=== PATIENT | female | born 1955 | race Caucasian/White ===

== ENCOUNTER 2017-06-24 10:03 | Emergency (ER) | payer OTHER ==
[~2017-06-24] VITALS: Ht 160 cm; Wt 102.1 kg
[~2017-06-24 10:03] MED LIST: AMLO5TAB2 PO; BUTA-247 PO; ESCI20TA PO; GABA-534 PO; GLIP10TA11 PO; INSU100V7 SQ; LOSA50TA21 PO; OMEP20TA68 PO; SIMV20TA6 PO; ZOLP10TA2 PO
--- NOTE | 2017-06-24 11:50 | NUR ---
PT CAME IN WITH DAUGHTER FOR DIARRHEA X 2 WEEKS. NAD NOTED. VSS. AWAITING FOR MD LU. SAFETY AND COMFORT MEASURES PROVIDED. WILL MONITOR.
--- NOTE | 2017-06-24 12:15 | NUR ---
IV ACCESS STARTED. BLOOD DRAWN FOR LABS. MEDICATED ORDERED.
[2017-06-24] MEDS ORDERED: DICYCLOMINE HCL INJ 20 MG/2 ML AMPUL IM ONE ×2 (12:30→12:36)
[2017-06-24] MEDS ORDERED: DIPHENOXYLATE HCL/ATROP SULF 1 UDTAB TABLET PO ONE (12:30)
[2017-06-24] MEDS ORDERED: IV NS 0.9% 1,000 ML BAG IV ONE (12:30)
[2017-06-24] MEDS ORDERED: ONDANSETRON HCL/PF 4 MG/2 ML VIAL IVP ONE (12:30)
[2017-06-24] MEDS ORDERED: ONDANSETRON HCL/PF 4 MG/2 ML VIAL ONE (12:36)
[2017-06-24] MEDS ORDERED: DIPHENOXYLATE HCL/ATROP SULF 1 UDTAB TABLET ONE (12:36)
[2017-06-24 13:06] LABS: BASOPHILS % (AUTO) 0.5 % (0.0-2.0); EOSINOPHILS # (AUTO) 0.1 /CMM (0.0-0.7); EOSINOPHILS % (AUTO) 1.4 % (0.0-6.0); HEMATOCRIT 46 % (33-45); HEMOGLOBIN 14.9 g/dL (11.5-14.8); LYMPHOCYTES # (AUTO) 2.7 /CMM (0.8-4.8); LYMPHOCYTES % (AUTO) 30.4 % (20.0-44.0); MEAN CORPUSCULAR HEMOGLOBIN 29 PG (26.0-33.0); MEAN CORPUSCULAR HGB CONC 32 g/dl (31.0-36.0); MEAN CORPUSCULAR VOLUME 89 fL (82-100); MONOCYTES # (AUTO) 0.7 /CMM (0.1-1.30); MONOCYTES % (AUTO) 7.8 % (2.0-12.0); NEUTROPHILS # (AUTO) 5.5 /CMM (1.8-8.9); NEUTROPHILS % (AUTO) 59.9 % (43.0-81.0); PLATELET COUNT (AUTO) 308 /CMM (150-450); RDW COEFFICIENT OF VARIATION 14.2 (11.5-15.0); RED BLOOD CELL COUNT(AUTO) 5.17 MIL/uL (4.0-5.2)
[2017-06-24 13:09] LABS: APPEARANCE,URINE Clear (CLEAR); BILIRUBIN,URINE Negative (NEGATIVE); BLOOD, URINE Trace-intact Ery/uL (NEGATIVE); COLOR,URINE Yellow (YELLOW); KETONES,URINE Negative (NEGATIVE); LEUKOCYTE ESTERASE ,URINE Trace (NEGATIVE); NITRITE, URINE Negative (NEGATIVE); PROTEIN,URINE Negative (NEGATIVE); UGLUCOSE Negative (NEGATIVE); UROBILINOGEN,URINE 0.2 EU/dL (0.2)
[2017-06-24 13:10] LABS: BACTERIA,URINE Few /HPF (None Seen); SQUAMOUS EPITHELIAL CELL,UR Few /HPF (None Seen); WBC,URINE 0-2 /HPF (0-3)
[2017-06-24 13:17] LABS: CALCIUM, SERUM 8.8 mg/dL (8.5-10.1); CREATININE 0.9 mg/dL (0.6-1.3); POTASSIUM 3.9 mmol/L (3.5-5.1)
[2017-06-24 13:22] LABS: ALBUMIN 3.4 g/dL (3.4-5.0); BILIRUBIN,DIRECT 0.1 mg/dL (0.0-0.2); BILIRUBIN,TOTAL 0.4 mg/dL (0.2-1.0); TOTAL PROTEIN, SERUM 6.9 g/dL (6.4-8.2)
--- NOTE | 2017-06-24 14:50 | NUR ---
IV removed. Catheter intact and site benign. Pressure and 4x4 applied to site. No bleeding noted.
[2017-06-24 15:04] VITALS: BP 121/79
--- NOTE | 2017-06-24 15:04 | NUR ---
Patient discharged to home in stable condition. Written and verbal after care instructions given. Patient verbalizes understanding of instruction.
== END 2017-06-24 15:04 | disposition home or self-care (01) ==
LOC: ER 10:04
DX: K52.9 Noninfective gastroenteritis and colitis, unspecified (principal); E11.9 Type 2 diabetes mellitus without complications; R82.99 Other abnormal findings in urine; I10 Essential (primary) hypertension; E78.00 Pure hypercholesterolemia, unspecified; F17.200 Nicotine dependence, unspecified, uncomplicated; Z79.4 Long term (current) use of insulin; Z88.0 Allergy status to penicillin
CPT/HCPCS: 36415; 74176; 80048; 80076; 81001; 82962; 83690; 85025; 87086; 96361; 96372; 96374; 99285; A4606; J0500; J2405; J7030; Z7610; 81000-TC

== ENCOUNTER 2020-05-22 14:33 | Inpatient (IN) | payer MEDICARE, OTHER ==
[~2020-05-22] VITALS: Ht 160 cm; Wt 99.8 kg
[~2020-05-22 14:33] MED LIST changes: -AMLO5TAB2 PO; +AMLO5TAB9 PO; -LOSA50TA21 PO; +LOSA50TA39 PO; +OMEP20TA5 PO; -OMEP20TA68 PO; +SIMV-46 PO; -SIMV20TA6 PO
--- NOTE | 2020-05-22 14:45 | NUR ---
[id number], from home, had seizure episode today, no trauma, BS 154. Patient a/ox4, breathinge hernán and unlabored, no sob noted. Needs attended.
[2020-05-22] MEDS ORDERED: IV NS 0.9% 1,000 ML BAG IV ONE (15:00)
[2020-05-22] MEDS ORDERED: LEVETIRACETAM (500MG) 500 MG in IV NS 0.9% 100 ML IV ONE (15:00)
[2020-05-22 15:43] LABS: BASOPHILS % (AUTO) 0.5 % (0.0-2.0); EOSINOPHILS % (AUTO) 0.1 % (0.0-6.0); HEMATOCRIT 36 % (33-45); HEMOGLOBIN 11.7 g/dL (11.5-14.8); LYMPHOCYTES # (AUTO) 1.4 /CMM (0.8-4.8); LYMPHOCYTES % (AUTO) 16.2 % (20.0-44.0); MEAN CORPUSCULAR HGB CONC 32 g/dl (31.0-36.0); MEAN CORPUSCULAR VOLUME 87 fL (82-100); MONOCYTES # (AUTO) 0.5 /CMM (0.1-1.30); MONOCYTES % (AUTO) 6.5 % (2.0-12.0); NEUTROPHILS # (AUTO) 6.5 /CMM (1.8-8.9); NEUTROPHILS % (AUTO) 76.7 % (43.0-81.0); PLATELET COUNT (AUTO) 552 /CMM (150-450); RED BLOOD CELL COUNT(AUTO) 4.18 MIL/uL (4.0-5.2); WHITE BLOOD COUNT (AUTO) 8.5 K/uL (4.3-11.0)
--- NOTE | 2020-05-22 15:45 | NUR ---
taken to ct.
--- NOTE | 2020-05-22 15:49 | NUR ---
patient came back from ct
[2020-05-22 16:09] LABS: ALANINE AMINOTRANSFERASE 17 U/L (12-78); ALBUMIN 3.1 g/dL (3.4-5.0); ALCOHOL, BLOOD < 3 mg/dL (0-0); ALKALINE PHOSPHATASE 103 U/L (46-116); ASPARTATE AMINOTRANSFERASE 19 U/L (15-37); BILIRUBIN,DIRECT 0.1 mg/dL (0.0-0.2); BILIRUBIN,TOTAL 0.2 mg/dL (0.2-1.0); CARBON DIOXIDE 27 mmol/L (21-32); CHLORIDE 100 mmol/L (98-107); CREATININE 0.8 mg/dL (0.6-1.3); GLUCOSE 138 mg/dL (74-106); POTASSIUM 3.1 mmol/L (3.5-5.1); SODIUM SERUM 136 mmol/L (136-145); TOTAL PROTEIN, SERUM 6.8 g/dL (6.4-8.2); UREA NITROGEN, BLOOD 15 mg/dL (7-18)
[2020-05-22] MEDS ORDERED: PARO40TA4 PO (17:22)
[2020-05-22] MEDS ORDERED: DULA1.5P SQ (17:22)
[2020-05-22] MEDS ORDERED: BUSP10TA35 PO (17:22)
[2020-05-22] MEDS ORDERED: DOCU-270 PO (17:22)
[2020-05-22] MEDS ORDERED: AMYL1CAP58 PO (17:22)
[2020-05-22] MEDS ORDERED: GABA300C PO (17:22)
[2020-05-22] MEDS ORDERED: MELO-107 PO (17:22)
[2020-05-22] MEDS ORDERED: TRAZ-257 PO (17:22)
[2020-05-22] MEDS ORDERED: ERTA1VIA4 IJ (17:22)
[2020-05-22] MEDS ORDERED: MONT10TA22 PO (17:22)
[2020-05-22] MEDS ORDERED: PRAV10TA40 PO (17:22)
[2020-05-22] MEDS ORDERED: LIDOCAINE PATCH TP (17:22)
[2020-05-22] MEDS ORDERED: LEVE500T20 PO (17:22)
[2020-05-22] MEDS ORDERED: HYDR-4384 PO (17:22)
[2020-05-22] MEDS ORDERED: CHOL200010 PO (17:22)
[2020-05-22] MEDS ORDERED: CYCL30DR OP (17:22)
[2020-05-22] MEDS ORDERED: INSU100I4 SQ (17:22)
[2020-05-22] MEDS ORDERED: PANT40TA49 PO (17:22)
[2020-05-22] MEDS ORDERED: METH500T6 PO (17:22)
[2020-05-22] MEDS ORDERED: PRIM50TA27 PO (17:22)
[2020-05-22] MEDS ORDERED: SENN-261 PO (17:22)
[2020-05-22] MEDS ORDERED: POLY17PO29 PO (17:22)
[2020-05-22] MEDS ORDERED: MECL-159 PO (17:22)
[2020-05-22] MEDS ORDERED: LOSA50TA39 PO (17:22)
--- NOTE | 2020-05-22 17:30 | NUR ---
DAUGHTER AT BEDSIDE. PATIENT A/OX4, BREATHING EVEN AND UNLABORED, AMBULATORY WITH STEADY, NEEDS ATTENDED. KEPT COMFORTABLE.
--- NOTE | 2020-05-22 17:56 | NUR ---
LAB CALLED COVID-19 (-) NEG.
--- NOTE | 2020-05-22 18:03 | NUR ---
GOT BED 309-2
--- NOTE | 2020-05-22 18:10 | NUR ---
Attempted to give report to Sulaiman EMMANUEL, nurse is not available at this time.
--- NOTE | 2020-05-22 18:24 | NUR ---
Patient transferred to room 309 via acls protocol. Was going to give bedside report to Sulaiman EMMANUEL but he's not present, informed charge nurse. Instructed to call in ER.
--- NOTE | 2020-05-22 18:25 | NUR ---
Patient a/ox4, ambulatory with steady gait, no dsitress noted. Needs attended. Kept comfortable.
--- NOTE | 2020-05-22 18:30 | NUR ---
RN NOTES PATIENT IN BED RESTING COMFORTABLY IN MODERATE HIGH BACK REST. A/O X2-3. ABLE TO MAKE NEEDS KNOWN. ROOM AIR, TOLERATING WELL. NO SIGNS OF DISTRESS, NO COMPLAIN OF PAIN OR DISCOMFORT AT THIS TIME. NOTED WITH PICC LINE ON ERENDIRA. SAFETY MEASURES IN PLACE, BED PLACED IN LOWEST LOCKED POSITION WITH SIDE RAILS UP X3. CALL LIGHT WITHIN REACH. SEIZURE PRECAUTION INITIATED. WILL ENDORSE TO NETWORK DEVELOPER NURSE FOR ADMISSION.
[2020-05-22] MEDS ORDERED: MAG HYDROX/AL HYDROX/SIMETH 30 ML UDC PO PRN (19:00)
[2020-05-22] MEDS ORDERED: ONDANSETRON HCL/PF 4 MG/2 ML VIAL IVP PRN (19:00)
[2020-05-22] MEDS ORDERED: ACETAMINOPHEN 325 MG TABLET PO PRN (19:00)
[2020-05-22] MEDS ORDERED: POTASSIUM CHLORIDE 20 MEQ TAB.PRT.SR PO ONE (19:00)
[2020-05-22] MEDS ORDERED: Z GUARD REMEDY 2 OZ OINT TP PRN (19:00)
[2020-05-22] MEDS ORDERED: ZOLPIDEM TARTRATE 5 MG TABLET PO PRN (19:00)
[2020-05-22] MEDS ORDERED: MAGNESIUM HYDROXIDE 30 ML UDC PO PRN (19:00)
--- NOTE | 2020-05-22 19:30 | NUR ---
inner tube tuber machine operator opening notes Received Pt from morning nurse. Pt is resting in bed comfortably. Pt is alert and orientedX3. Pt speaks Puerto Rican and able to make needs known. Respiration is normal in room air. No SOB. No S/S of distress noted. Tele monitor showed SR. Noted Pt has BRAYDEN Piccline. Pt stated Picc line from [facility]. Admissions orders received from MD. Reorient Pt to the room and the use of call light. Pt verbalize understanding. Skin assessment is done and performed, skin pictures are taken. Safety precautions is maintained. Seizure precautions is maintained. Bed at low position, brakes locked, side rails upX3 and padded, call light is within reach. Will continue to monitor.
[2020-05-22 20:00] VITALS: BP_SYST 144; BP_SYST 145; BP_DIAS 63; BP_DIAS 81
--- NOTE | 2020-05-22 20:00 | NUR ---
multi share program coordinator notes Pt's daughter Kelly called. Spoke with Pt's daughter regarding Pt's condition. Pt's daughter verbalize understanding. Will continue to monitor.
--- NOTE | 2020-05-22 20:15 | NUR ---
soil field technician notes Pt is requesting a sandwich. Pt stated "I haven't eaten, I'm hungry." Gave Pt a tuna sandwich. Will continue to monitor.
--- NOTE | 2020-05-22 22:00 | NUR ---
packing tractor machine operator notes Pt and Pt's daughter Kelly asked not to give Pt mali, rosanna and jay jay. Charge nurse is aware and informed. Will continue to monitor.
--- NOTE | 2020-05-22 22:00 | NUR ---
vfx artist notes Pt's PICC line (1 port) is clogged and can't be flushed. Inserted new IV sites at R hand# 22 with good blood returned. New IV sites is clean, dry and flush without resistance. Charge nurse is aware and informed. Will continue to monitor.
--- NOTE | 2020-05-22 22:00 | NUR ---
donor floor technician notes Informed and notified Dr. Mark regarding pt's trazodone 100mg. Pt stated Im taking trazodone for sleeping. Received order from . Order carried out. Charge nurse is aware and notified.
--- NOTE | 2020-05-22 22:30 | NUR ---
employee wellness/fitness coordinator notes Called and spoke with Pharmacy Jahaira to verify Pt's meds trazodone 100 mg. Will continue to monitor.
[2020-05-22] MEDS: TRAZODONE 50 MG TABLET PO SCH (22:40)
--- NOTE | 2020-05-22 22:43 | NUR ---
cattle tester notes Pt's requesting trazodone to help to sleep. Administered trazodone 50 mg/2 tabs/po/hs as ordered. Safety precautions is maintained. Will continue to monitor.
[2020-05-22] MEDS ORDERED: BLOOD SUGAR DIAGNOSTIC 1 EACH STRIP IN SCH (23:00)
[2020-05-22] MEDS: LEVETIRACETAM (500MG) 500 MG in IV NS 0.9% 100 ML IV SCH (23:12)
[2020-05-23] VITALS: BP 137/61
[2020-05-23] MEDS ORDERED: DEXTROSE 50%-WATER 50 ML DISP.SYRIN IV PRN
--- NOTE | 2020-05-23 00:05 | NUR ---
foil wrapper notes Called and spoke with [facility] regarding novolog insulin. Pharmacy stated that our hospital does not have novolog, our hospital have humalog and pharmacy also stated novolog is almost the same with humalog. Charge nurse is informed and notified.
[2020-05-23] MEDS: *INSULIN REGULAR(HUMULIN R)HUM 100 UNIT/ML VIAL SQ PRN (00:14)
[2020-05-23 00:25] VITALS: BP 137/61
[2020-05-23 04:00] VITALS: BP 141/62
[2020-05-23 04:26] VITALS: BP 141/62
--- NOTE | 2020-05-23 06:30 | NUR ---
sales enablement analyst notes Pt's blood sugar is 125 no coverage is given. Will continue to monitor.
--- NOTE | 2020-05-23 06:50 | NUR ---
professor of pathology notes Pt accidentally removed IV sites at R hand#22. Pt refused to have new IV sites insertion. Made aware risks and benefits. Will continue to monitor.
[2020-05-23] MEDS: BLOOD SUGAR DIAGNOSTIC 1 EACH STRIP VI SCH ×4 (06:54→22:02)
[2020-05-23 06:57] LABS: BASOPHILS % (AUTO) 0.3 % (0.0-2.0); HEMATOCRIT 40 % (33-45); HEMOGLOBIN 12.8 g/dL (11.5-14.8); LYMPHOCYTES % (AUTO) 19.9 % (20.0-44.0); MEAN CORPUSCULAR HGB CONC 32 g/dl (31.0-36.0); MEAN CORPUSCULAR VOLUME 86 fL (82-100); MONOCYTES # (AUTO) 0.8 /CMM (0.1-1.30); MONOCYTES % (AUTO) 7.8 % (2.0-12.0); NEUTROPHILS # (AUTO) 7.1 /CMM (1.8-8.9); PLATELET COUNT (AUTO) 616 /CMM (150-450); RED BLOOD CELL COUNT(AUTO) 4.61 MIL/uL (4.0-5.2); WHITE BLOOD COUNT (AUTO) 9.8 K/uL (4.3-11.0)
--- NOTE | 2020-05-23 07:00 | NUR ---
labview programmer closing notes Pt is resting in bed comfortably. Pt is alert and orientedX3, confused and easily forgetful. Respiration is normal in room air. No SOB. No S/S of distress noted. VS is stable. Afebrile. Routine meds were given as ordered. Tele monitor showed SR Hr at 79. Kept Pt clean, dry and comfortable. All needs met and attended. Safety precautions is maintained. Seizure precautions is maintained. Bed at low position, brakes locked, side railsupX3 and padded, call light is within reach. Will endorse to am nurse for JAYLON.
[2020-05-23 07:03] LABS: CALCIUM, SERUM 8.7 mg/dL (8.5-10.1); CREATININE 0.7 mg/dL (0.6-1.3); MAGNESIUM 1.9 mg/dL (1.8-2.4); PHOSPHORUS 2.5 mg/dL (2.5-4.9); POTASSIUM 3.2 mmol/L (3.5-5.1)
[2020-05-23 07:12] LABS: THYROID STIMULATING HORMONE 1.036 uIU/mL (0.358-3.74)
--- NOTE | 2020-05-23 07:30 | NUR ---
MS/RN OPENING NOTES RECEIVED PATIENT ON BED AWAKE, CONFUSED AND FORGETFUL. PATIENT IN NO APPARENT RESPIRATORY DISTRESS NOTED. DENIES PAIN AT THIS TIME. WILL CONTINUE TO MONITOR.
[2020-05-23 08:00] VITALS: BP 164/82
--- NOTE | 2020-05-23 08:51 | NUR ---
WOUND CARE CONSULT: PT REFUSED TO TURN FOR SKIN ASSESSMENT. REVIEWED CHART, NURSING DOCUMENTATION AND PHOTOS WHICH INDICATE CLOSED INCISION TO BACK WITH SUTURES. PER RN, BACK DRESSING WAS JUST CHANGED AND SHE STATED THERE WAS NO ERYTHEMA OR DRAINAGE NOTED. DRY DRESSING IN PLACE. ADMISSION PHOTOS INDICATE RASH TO BREASTFOLDS, PRESENT ON ADMISSION. RECOMMENDATIONS MADE FOR SKIN PROTECTION. DISCUSSED WITH NURSING STAFF. CURRENT CYNTHIA SCORE IS 18. PT WAS NOTED TO HAVE HEAD AND EYE MOVEMENTS FOR A FEW MINUTES, THEN BEGAN SPEAKING SPANISH AFTER PREVIOUSLY SPEAKING GUAMANIAN. RN AND LATHE PULLER AWARE. WILL SEE PRNCarl MIX IN AGREEMENT WITH PLAN OF CARE.
[2020-05-23] MEDS: LEVETIRACETAM (500MG) 500 MG in IV NS 0.9% 100 ML IV SCH (09:02)
[2020-05-23] MEDS: CLOTRIMAZOLE 1% 15 GM TUBE TP SCH ×2 (09:28→17:02)
--- NOTE | 2020-05-23 09:47 | NUR ---
MS/RN NOTES PATIENT COMPLAINED OF FEELING ANXIOUS. ATIVAN 05MG IV WAS GIVEN. WILL CONTINUE TO MONITOR.
[2020-05-23] MEDS: LORAZEPAM INJ 2 MG/ML VIAL IV PRN (09:49)
[2020-05-23] MEDS: POTASSIUM CHLORIDE 20 MEQ TAB.PRT.SR PO SCH ×2 (09:49→10:31)
--- NOTE | 2020-05-23 11:00 | NUR ---
MS/RN NOTES MD IS AWARE FOR HOME MEDICATION RECONCILIATION AND CHEMICAL PROPHYLAXIS.
[2020-05-23] MEDS: INSULIN REGULAR, HUMAN 100 UNIT/ML 3 ML VIAL SQ PRN ×3 (12:04→21:59)
--- NOTE | 2020-05-23 16:19 | NUR ---
MS/RN NOTES KULWINDER THE DAUGHTER WANT TO TALK TO THE MD BEFORE ANY TEST OR PROCEDURE FOR PATIENT MDIS AWARE.
[2020-05-23] MEDS ORDERED: IOHEXOL-300 100 ML VIAL IV ONE (17:29)
[2020-05-23] MEDS ORDERED: CT SWABBABLE VALVE TRANS SET 1 EA INFUS.SET MC ONE (17:29)
[2020-05-23] MEDS ORDERED: IV NS 0.9% 250 ML IV ONE (17:29)
--- NOTE | 2020-05-23 18:43 | NUR ---
MS/RN NOTES MITCHEL WHITE ORDER 1000MG IV KEPPRA X1 NOW, 1000 MG 1V KEPPRA EVERY 12 HOURS AND MRI WITH AND WITHOUT CONTRAST, NOTED AND CARRIED OUT. Addendum: 05/23/20 at 1859 by JOS MOORE RN ERROR
--- NOTE | 2020-05-23 18:43 | NUR ---
MS/RN NOTES MITCHEL WHITE ORDER 1000MG IV KEPPRA X1 NOW, 1000 MG 1V KEPPRA EVERY 12 HOURS AND MRI BRAIN WITH AND WITHOUT CONTRAST, NOTED AND CARRIED OUT.
--- NOTE | 2020-05-23 18:56 | NUR ---
MS/RN CLOSING NOTES PATIENT IS ON BED, CONFUSED AND FORGETFUL. PATIENT HAVE 1:1 SITTER. PATIENT NO SIGN AND SYMPTOM OF PAIN NOTED. PATIENT IN NO RESPIRATORY DISTRESS NOTED. IV ACCESS ERENDIRA # 18 G PATENT AND INTACT. SEEN AND EXAMINED BY MD WITH ORDERS MADE AND CARRIED OUT. ALL DUE MEDICATION WAS ORDER. SAFETY PRECAUTION WAS IN PLACED. BED IN LOWEST POSITION AND LOCKED. SIDE RAILS UP X 2. CALL LIGHT WITHIN REACH. WILL ENDORSED TO ELECTRIC TRIPPER MACHINE OPERATOR FOR JAYLON.
[2020-05-23] MEDS ORDERED: LEVETIRACETAM (500MG) 1,000 MG in IV NS 0.9% 100 ML IV ONE (19:30)
--- NOTE | 2020-05-23 20:05 | NUR ---
MS RN NOTE: PATIENT RESTING IN BED, NO ACUTE DISTRESS NOTED. BREATHING EVEN AND UNLABORED, NO SOB NOTED. MIDLINE TO ERENDIRA IN PLACE, HL TO RIGHT WRIST IN PLACE. PATIENT WITH MULTIPLE ORDERS FOR KEPPRA IV. CLARIFIED ORDERS WITH DAYSHIFT AND INFORMED PHARMACY, THAT PATIENT TO RECEIVE 1 DOSE OF KEPPRA IV 500MG ONCE NOW, AND TO CONTINUE PREVIOUS ORDER OF KEPPRA 1000MG IV EVERY 12 HOURS. ORDERED NOTED AND CARRIED OUT. SITTER AT BEDSIDE, SEIZURE PRECAUTIONS OBSERVED. BED LOCKED AND IN LOWEST POSITION, CALL LIGHT IN REACH WILL CONTINUE TO MONITOR.
[2020-05-23 20:07] VITALS: BP 168/77
[2020-05-23] MEDS ORDERED: LEVETIRACETAM (500MG) 1,000 MG in IV NS 0.9% 100 ML IV SCH ×2 (21:00→22:00)
--- NOTE | 2020-05-23 21:15 | NUR ---
SPOKE WITH DAUGHTER KULWINDER REGAURDING MRI TOMORROW AND VERIFIED PATIENT MEDICAL HISTORY FOR QUESTIONAIRE, PATIENT WAS A POOR HISTORIAN D/T MENTAL STATUS. REVIEWED POC WITH DAUGHTER KULWINDER. PEGGYMILLIE THAT THERE WAS A RECENT MRI PERFORMED AT [facility] EAR[facility]ER THIS MONTH AND MAY BE USEFUL .CONSENT FOR RELEASE OF RECORDS SIGNED VIA TELPHONE CONSENT WITH ORALIA EMMANUEL.
[2020-05-23] MEDS: TRAZODONE 50 MG TABLET PO SCH (21:31)
[2020-05-23] MEDS: LEVETIRACETAM (500MG) 1,000 MG in IV NS 0.9% 100 ML IV SCH (21:33)
[2020-05-23] MEDS: CEFEPIME 2 GM in IV D5W 100 ML IV SCH (22:02)
[2020-05-23] MEDS: VANCOMYCIN 1.25 GM in IV D5W 250 ML IV SCH (23:08)
--- NOTE | 2020-05-24 00:09 | NUR ---
record request sent to [facility] to get recent mri report and other pertinent records. authorization consented to earlier by daughter jac.
[2020-05-24] MEDS: INSULIN REGULAR, HUMAN 100 UNIT/ML 3 ML VIAL SQ PRN ×2 (06:15→14:27)
--- NOTE | 2020-05-24 06:16 | NUR ---
INSULIN HELD PT WILL BE KEPT NPO FOR MRI OF BRAIN SCHEDULED FOR THIS AM
[2020-05-24] MEDS: BLOOD SUGAR DIAGNOSTIC 1 EACH STRIP VI SCH ×4 (06:29→22:40)
[2020-05-24 06:52] LABS: BASOPHILS # (AUTO) 0.1 /CMM (0.0-0.2); BASOPHILS % (AUTO) 0.8 % (0.0-2.0); EOSINOPHILS % (AUTO) 0.1 % (0.0-6.0); HEMATOCRIT 37 % (33-45); HEMOGLOBIN 11.9 g/dL (11.5-14.8); LYMPHOCYTES % (AUTO) 16.6 % (20.0-44.0); MEAN CORPUSCULAR HGB CONC 32 g/dl (31.0-36.0); MEAN CORPUSCULAR VOLUME 87 fL (82-100); MONOCYTES % (AUTO) 8.8 % (2.0-12.0); NEUTROPHILS # (AUTO) 8.7 /CMM (1.8-8.9); NEUTROPHILS % (AUTO) 73.7 % (43.0-81.0); PLATELET COUNT (AUTO) 424 /CMM (150-450); RED BLOOD CELL COUNT(AUTO) 4.24 MIL/uL (4.0-5.2); WHITE BLOOD COUNT (AUTO) 11.8 K/uL (4.3-11.0)
--- NOTE | 2020-05-24 06:55 | NUR ---
MS RN CLOSING NOTE: PATIENT RESTING IN BED, NO ACUTE DISTRESS NOTED. BREATHING EVEN AND UNLABORED, NO SOB NOTED. MIDLINE TO ERENDIRA IN PLACE SITTER AT BEDSIDE, SEIZURE PRECAUTIONS OBSERVED. BED LOCKED AND IN LOWEST POSITION, CALL LIGHT IN REACH WILL ENDORSE TO AM SHIFT
[2020-05-24 06:59] LABS: CALCIUM, SERUM 8.2 mg/dL (8.5-10.1); CREATININE 0.7 mg/dL (0.6-1.3); PHOSPHORUS 2.4 mg/dL (2.5-4.9); POTASSIUM 3.1 mmol/L (3.5-5.1)
--- NOTE | 2020-05-24 07:30 | NUR ---
RECEIVED PT. THIS AM ALERT AND ORIENTED X2-3.SEEMS SLUGGISH AT TIMES VS STABLE. DTR CALLING OFTEN.
[2020-05-24 08:00] VITALS: BP 153/64
[2020-05-24] MEDS: LEVETIRACETAM (500MG) 1,000 MG in IV NS 0.9% 100 ML IV SCH (10:11)
[2020-05-24] MEDS: CLOTRIMAZOLE 1% 15 GM TUBE TP SCH ×2 (10:19→18:18)
[2020-05-24] MEDS: POTASSIUM CHLORIDE 20 MEQ TAB.PRT.SR PO SCH ×2 (10:33→12:00)
[2020-05-24] MEDS: *INSULIN REGULAR(HUMULIN R)HUM 100 UNIT/ML VIAL SQ PRN ×2 (10:44→18:35)
[2020-05-24] MEDS: CEFEPIME 2 GM in IV D5W 100 ML IV SCH ×2 (11:50→20:20)
--- NOTE | 2020-05-24 12:23 | NUR ---
PER RADIOLOGIST MD BRAVO, UNABLE TO PERFORM LUMBAR PUNCTURE DUE TO RISK OF INFECTION ON PATIENTS SKIN. CANCEL PER RADIOLOGIST.
[2020-05-24] MEDS ORDERED: GADOTERATE MEGLUMINE 10 MMOL/20 ML VIAL IV ONE (13:04)
[2020-05-24] MEDS: LORAZEPAM INJ 2 MG/ML VIAL IV PRN ×2 (13:04→20:44)
--- NOTE | 2020-05-24 13:20 | NUR ---
STUMBLING FOR CORRECT WORD TO USE.COGNOTIVELY A LITTLE SLOW.ATIVAN GIVEN.
[2020-05-24] MEDS ORDERED: LEVETIRACETAM (500MG) 1,000 MG in IV NS 0.9% 100 ML IV ONE (13:30)
[2020-05-24] MEDS ORDERED: K PHOS NEUTRAL 250 MG TABLET PO ONE ×2 (14:00→18:30)
[2020-05-24] MEDS: VANCOMYCIN 1.25 GM in IV D5W 250 ML IV SCH ×2 (14:51→22:40)
[2020-05-24 16:00] VITALS: BP 162/76
--- NOTE | 2020-05-24 16:50 | NUR ---
EXTRA DOSE OF KEPPRA GIVEN.
--- NOTE | 2020-05-24 17:00 | NUR ---
MOUNA MIX AND DR. MENDEZ IN TO SEE PT. EQUIPMENT HIRE MANAGER AT BEDSIDE.
--- NOTE | 2020-05-24 18:00 | NUR ---
K-DUR SUPPLEMENT AND NEUTRA PHOS GIVEN.
--- NOTE | 2020-05-24 19:50 | NUR ---
MSRN FULLY AWAKE , PRESENT IVF INFUSING WELL. ON MULTIPLE ANTIBIOTICS. SEIZURE PRECAUTIONS CLOSELY OBSERVED. BEDREST EMPHASIZED. LIMITED MACANESE ABLE O EXPRESS NEEDS AND CONCERNS IN SIMPLE MACANESE. NO SOB, BRP WITH STANDY ASSIST. REFUSED BEDSIDE COMMODE. SIDERAILS PADDED.
[2020-05-24 20:00] VITALS: BP 146/63
--- NOTE | 2020-05-24 20:45 | NUR ---
MSRN VERY ANXIOUS STATED VERY NERVOUS. ATIVAN 1MG IVP GIVEN, BEDREST INSTRUCTED. ALL NEEDS ATTENDED.
--- NOTE | 2020-05-24 21:00 | NUR ---
MSRN ASLEEP, EASILY AWAKENED WHRN CALLED. FEELS BETTER THIS TIME STATED BY PATIENT.
[2020-05-24] MEDS: LEVETIRACETAM (500MG) 1,500 MG in IV NS 0.9% 100 ML IV SCH (21:19)
[2020-05-24] MEDS: TRAZODONE 50 MG TABLET PO SCH (22:42)
--- NOTE | 2020-05-24 22:57 | NUR ---
MSRN BS WAS 170. NO COVERAGE FOR NOW. PATIENT REFUSED TO EAT SNACKS. STATED WAS HIGH FROM TAKING [place] EARLIER PATIENT VERBALIZES. OTHER DUE MEDS ADMINISTERED. WENT BACK TO SLEEP.
--- NOTE | 2020-05-25 01:59 | NUR ---
MSRN ASLEEP APPEARS COMFORTABLE. CLOSELY WATCHED.
--- NOTE | 2020-05-25 06:20 | NUR ---
MSRN VOIDED TOTAL OF 4 X BRP. BS WAS 184 COVERED WITH 3 UNITS SQ OF REGULAR INSULIN PER SLIDING SCALE.
[2020-05-25] MEDS: BLOOD SUGAR DIAGNOSTIC 1 EACH STRIP VI SCH ×4 (06:28→21:16)
[2020-05-25] MEDS: INSULIN REGULAR, HUMAN 100 UNIT/ML 3 ML VIAL SQ PRN ×3 (06:30→17:14)
[2020-05-25 06:45] LABS: CALCIUM, SERUM 8.1 mg/dL (8.5-10.1); CREATININE 0.7 mg/dL (0.6-1.3); PHOSPHORUS 2.6 mg/dL (2.5-4.9); POTASSIUM 2.9 mmol/L (3.5-5.1)
--- NOTE | 2020-05-25 07:30 | NUR ---
MS/RN Opening note Patient received from wood buffer. A/O X4, vital signs stable, denies any pain or discomfort at this time. IV fluids infusing via midline, no signs of infiltration seen. Dressings dry and intact, changed at change of shift by outgoing nurse. Call light within reach, sitter in room for safety. Will continue to monitor and ensure safety.
[2020-05-25 08:00] VITALS: BP 153/89
[2020-05-25] MEDS: CEFEPIME 2 GM in IV D5W 100 ML IV SCH ×2 (08:17→21:15)
[2020-05-25] MEDS: CLOTRIMAZOLE 1% 15 GM TUBE TP SCH ×2 (09:00→17:10)
[2020-05-25] MEDS: LEVETIRACETAM (500MG) 1,500 MG in IV NS 0.9% 100 ML IV SCH (09:02)
--- NOTE | 2020-05-25 09:10 | NUR ---
MS/workday financials consultant contact info Daughter's contact information: Kelly
--- NOTE | 2020-05-25 09:18 | NUR ---
MS/RN Medications Morning medications administered as ordered.
--- NOTE | 2020-05-25 09:48 | NUR ---
[facility], will discharge today.
[2020-05-25] MEDS: VANCOMYCIN 1.25 GM in IV D5W 250 ML IV SCH ×2 (10:40→22:14)
[2020-05-25] MEDS: POTASSIUM CHLORIDE 20 MEQ TAB.PRT.SR PO SCH ×3 (10:40→12:13)
--- NOTE | 2020-05-25 11:30 | NUR ---
MS/RN Blood glucose Blood glucose at 1130 252, insulin coverage as per sliding scale.
--- NOTE | 2020-05-25 11:45 | NUR ---
MS/RN Refusing ARU Patient refusing to be discharged to acute rehab, stating that she has been in the hospital to long over the past month and would recover better at home. Informed of concerns of her family and having anyone to stay with her during her recovery period. Patient adamantly refusing any kind of placement. Will inform case worker.
--- NOTE | 2020-05-25 13:40 | NUR ---
MS/RN S/B Dr Sol Seen by Dr Sol - patient for discharge today.
[2020-05-25 16:00] VITALS: BP 145/79
--- NOTE | 2020-05-25 16:00 | NUR ---
MS/RN Refusing ARU Patient refusing to be discharged to acute rehab, continues to insist on going home with home health for IVAB. Kelly (patient's daughter) aware and continuing to try to persuade patient to go home. biodiesel plant manager at bedside with charge nurse providing translation.
--- NOTE | 2020-05-25 16:12 | NUR ---
MS/RN S/B Dr Lacey Seen by Dr Lacey - discharge held due to hypokalemia. Repeat EEG ordered.
[2020-05-25 17:04] LABS: CHLORIDE,URINE RANDOM 117 mmol/L (55-125); POTASSIUM RNDM,URINE 27 mmol/L (25-125); URINE SODIUM, RANDOM 77 mmol/l (40-220)
[2020-05-25 17:26] LABS: OSMOLALITY,URINE 444 mOS/kg (340-1090)
--- NOTE | 2020-05-25 18:11 | NUR ---
received call from Dr. Zhen Singh neurologist from , updated with pt's condition. He stated that, he will contact the pt with f/u apt after discharge.
--- NOTE | 2020-05-25 18:34 | NUR ---
MS/RN End note EEG currently in progress at bedside, will endorse to night coordinator.
--- NOTE | 2020-05-25 18:46 | NUR ---
MS/RN New orders Call received from Dr Lacey - stat labs ordered, keppra dose increased from 1500 to 2000mg IVAB every 12 hours. New dose to be given now, pharmacy called, spoke with Vickie, will send new medication.
[2020-05-25] MEDS: LEVETIRACETAM (500MG) 2,000 MG in IV NS 0.9% 100 ML IV SCH (19:03)
--- NOTE | 2020-05-25 19:40 | NUR ---
MSRN FULLY AWAKE, NO NEEDS AT THIS TIME. NO COMPLAINTS MADE. EAGER TO GO HOME. ON SEIZURE PRECAUTIONS.
[2020-05-25 19:57] VITALS: BP 165/73
[2020-05-25 20:06] LABS: CALCIUM, SERUM 8.5 mg/dL (8.5-10.1); CREATININE 0.9 mg/dL (0.6-1.3); POTASSIUM 3.2 mmol/L (3.5-5.1)
[2020-05-25 20:22] LABS: BASOPHILS # (AUTO) 0.1 /CMM (0.0-0.2); BASOPHILS % (AUTO) 0.4 % (0.0-2.0); EOSINOPHILS % (AUTO) 0.7 % (0.0-6.0); HEMATOCRIT 41 % (33-45); HEMOGLOBIN 13.5 g/dL (11.5-14.8); LYMPHOCYTES # (AUTO) 2.2 /CMM (0.8-4.8); LYMPHOCYTES % (AUTO) 15.9 % (20.0-44.0); MEAN CORPUSCULAR HGB CONC 33 g/dl (31.0-36.0); MEAN CORPUSCULAR VOLUME 86 fL (82-100); MONOCYTES # (AUTO) 1.4 /CMM (0.1-1.30); MONOCYTES % (AUTO) 10.2 % (2.0-12.0); NEUTROPHILS # (AUTO) 10.1 /CMM (1.8-8.9); NEUTROPHILS % (AUTO) 72.8 % (43.0-81.0); PLATELET COUNT (AUTO) 615 /CMM (150-450); RED BLOOD CELL COUNT(AUTO) 4.82 MIL/uL (4.0-5.2); WHITE BLOOD COUNT (AUTO) 13.9 K/uL (4.3-11.0)
[2020-05-25 20:54] LABS: LYMPHOCYTES % (MANUAL) 11 % (16-48); MONOCYTES % (MANUAL) 5 % (0-11.0); NEUTROPHILS % (MANUAL) 84 (42-76)
[2020-05-25] MEDS: TRAZODONE 50 MG TABLET PO SCH (21:38)
[2020-05-25] MEDS: *INSULIN REGULAR(HUMULIN R)HUM 100 UNIT/ML VIAL SQ PRN (21:41)
--- NOTE | 2020-05-25 22:00 | NUR ---
MSRN BS 212, COVERED WITH 4 UNITS OF REGULAR INSULIN SQ PER SLIDING SCALE. DECLINED SNACKS, OTHE DUE MEDS GIVEN
--- NOTE | 2020-05-26 | NUR ---
PT PLACED ON NPO PER. DR. HURTADO NOTED AND CARRIED OUT ORDERS Addendum: 05/27/20 at 0126 by JOHNNY CARDENAS RN MISTAKEN ENTRY WRONG TIME PLS DISREGARD THIS DOCUMENTATION
--- NOTE | 2020-05-26 03:09 | NUR ---
MSRN SLEEPING APPEARS COMFORTABLE.CLOSELY WATCHED
[2020-05-26 06:47] LABS: CALCIUM, SERUM 8.2 mg/dL (8.5-10.1); CREATININE 0.7 mg/dL (0.6-1.3)
--- NOTE | 2020-05-26 06:55 | NUR ---
MSRN BS 194. REFUSES ANY INSULIN COVERAGE. RECEIVED CALL FROM LAB. K LEVEL WAS 2.8. WILL ENDORSE TO INCOMING RN
[2020-05-26 06:59] LABS: POTASSIUM 2.8 mmol/L (3.5-5.1)
--- NOTE | 2020-05-26 08:00 | NUR ---
MS/RN Opening note Received pt A/O X2-3, with episodes of confusion,denies any pain or discomfort at this time. ERENDIRA midline intact, no signs of infiltration seen. Dressings dry and intact, Pt ambulated with P.T ambulating with FWW, tolerating well with no seizure episode. With sitter at the bedside.Call light within reach, sitter in room for safety. Will continue to monitor and ensure safety.
[2020-05-26] MEDS: INSULIN REGULAR, HUMAN 100 UNIT/ML 3 ML VIAL SQ PRN ×2 (08:21→12:36)
[2020-05-26] MEDS: BLOOD SUGAR DIAGNOSTIC 1 EACH STRIP VI SCH ×4 (08:26→21:32)
[2020-05-26] MEDS: CEFEPIME 2 GM in IV D5W 100 ML IV SCH ×2 (08:36→21:56)
[2020-05-26] MEDS: CLOTRIMAZOLE 1% 15 GM TUBE TP SCH ×2 (08:37→17:10)
--- NOTE | 2020-05-26 10:00 | NUR ---
NOTIFIED DR MUNDO SANCHEZ OF PT'S MED RECON NEEDING TO BE DONE.
--- NOTE | 2020-05-26 10:05 | NUR ---
NOTIFIED DR FLOWER OF PT'S VTE SCORE OF 3 PT NEEDING ANTICOAGULANT ORDER.
[2020-05-26] MEDS: VANCOMYCIN 1.25 GM in IV D5W 250 ML IV SCH ×2 (10:29→22:43)
[2020-05-26] MEDS ORDERED: POTASSIUM CHLORIDE 20 MEQ TAB.PRT.SR PO ONE (10:30)
[2020-05-26] MEDS ORDERED: POTASSIUM CHLORIDE 20 MEQ POWDER PACKET NG ONE (10:30)
[2020-05-26] MEDS: POTASSIUM CHLORIDE 20 MEQ TAB.PRT.SR PO SCH ×3 (10:49→13:22)
[2020-05-26] MEDS: VALSARTAN 80 MG TABLET PO SCH (12:17)
[2020-05-26] MEDS: LEVETIRACETAM (500MG) 2,000 MG in IV NS 0.9% 100 ML IV SCH ×2 (12:18→21:13)
--- NOTE | 2020-05-26 15:00 | NUR ---
DR PHAM CAME AND REMOVED PT'S BACK SUTURES WITH NO BLEEDING NOTED. PT TOLERATED WELL.COVERED WITH DRY DRESSING.
[2020-05-26 16:00] VITALS: BP 131/70
--- NOTE | 2020-05-26 16:15 | NUR ---
Seen by Dr Lacey saying when the pt has episodes of forgetful with confusion and pauses for awhile that is the type of seizure the pt has. Pt has occasional episodes this morning. Still awaiting for pt transfer to [facility]. Pt's daughter,Kelly delong.
[2020-05-26] MEDS: LORAZEPAM INJ 2 MG/ML VIAL IV PRN (18:12)
--- NOTE | 2020-05-26 18:50 | NUR ---
PT IS NOTICED TO BE DROOLING,UNABLE TO SWALLOW THE MEAT SHE WAS EATING FOR DINNER , WITH BLANK STARES WHILE SITTING ON THE EDGE OF BED PROPERLY WITH JUST BLANK STARES ON THE STAFF AND NON VERBAL.NOTIFIED DR CHAIREZ AND OBTAINED ORDERS AND CARRIED OUT. BP 118/89 HR 110. NO SOB OR DISTRESS ON ROOM AIR. NO GRIMACING OR S/S OF DISCOMFORT NOTED.STILL PROPERLY SITTED ON THE EDGE OF BED WITH SUSIE FEET ON THE FLOOR. WITH 1:1 SITTER AT THE BEDSIDE. WILL CONTINUE TO MONITOR.
[2020-05-26] MEDS ORDERED: LACOSAMIDE 200 MG in IV NS 0.9% 100 ML IV STA (18:55)
--- NOTE | 2020-05-26 19:48 | NUR ---
MS RN RECEIVE PT IN BED WATCHING TV A/O 3 JORDANIAN SPEAKING STABLE AND NOT IN DISTRESS 1:1 SITTER SEIZURE PRECAUTION PT ON VIMPAT SAFETY MEASURES AT ALL TIMES. WILL CONT TO MONITOR Addendum: 05/27/20 at 0124 by JOHNNY CARDENAS RN PT A/O 2-3 ABLE TO RESPOND YES/NO STABLE AT THIS TIME
[2020-05-26 20:00] VITALS: BP 127/68
--- NOTE | 2020-05-26 20:00 | NUR ---
TEMP 99.7 COOLING MEASURES PROVIDED TO THE PT
--- NOTE | 2020-05-26 20:15 | NUR ---
DAUGHTER KULWINDER AT BEDSIDE AIRCRAFT CHARTER DISPATCHER ALLOW FAMILY TO VISIT PT FOR 10 MINUTES CHARGE NURSE AWARE. DISCUSS PLAN OF CARE TO THE DAUGHTER EXPLAINED SHE HAD EPISODE OF SEIZURE EARLIER AND SHE WAS UPSET BECAUSE NO ONE TOLD HER. EXPLAINED TO HER THAT NEUROLOGIST AWARE CHANGE OF CONDITION ORDERED STAT LABS. EDUCATED HER ABOUT DISEASE PROCESS & TREATMENTS DAUGTHER VERBALIZED UNDERSTANDING AND APPRECIATIVE TO NURSE
[2020-05-26 20:23] LABS: CALCIUM, SERUM 8.5 mg/dL (8.5-10.1); CREATININE 0.9 mg/dL (0.6-1.3); MAGNESIUM 1.7 mg/dL (1.8-2.4); PHOSPHORUS 2.5 mg/dL (2.5-4.9); POTASSIUM 3.3 mmol/L (3.5-5.1)
--- NOTE | 2020-05-26 20:45 | NUR ---
NOTED PT TWITCHING OF THE MOUTH AND CONTINUOUS HAND TREMORS RELAYED TO DR. HURTADO PER DR. MENDEZ RELAYED POTASSIUM OF 3.3 AND MAGNESIUM OF 1.7 PER M.D ORDERS GIVE POTASSIUM 60 MEQ IV PB AND MG 1 GRAM IV PB, TRANSFER TO TELEMETRY NO IV. FLUID ORDERS. PER DR. OLIVA ITS RELATED TO HER SEIZURES READ BACK AND VERIFIED ORDERS NOTED AND CARRIED OUT Addendum: 05/27/20 at 0113 by JOHNNY CARDENAS RN PT TWITCHING R MOUTH
--- NOTE | 2020-05-26 20:45 | NUR ---
PT PLACED ON NPO PER. DR. HURTADO NOTED AND CARRIED OUT ORDERS
[2020-05-26] MEDS ORDERED: Magnesium 1GM/D5W 100ML PREMIX PIGGYBACK IV ONE (21:00)
[2020-05-26] MEDS ORDERED: LACOSAMIDE 50 MG TABLET PO SCH (21:00)
[2020-05-26 21:30] VITALS: BP 94/61
--- NOTE | 2020-05-26 21:30 | NUR ---
NOTED TEMPERATURE AT 101.2 COOLING MEASURES PROVIDED WILL CONTNUE TO MONITOR PT
[2020-05-26] MEDS: TRAZODONE 50 MG TABLET PO SCH (21:32)
[2020-05-26 22:00] VITALS: BP 155/64
--- NOTE | 2020-05-26 22:00 | NUR ---
TEMPERATURE 99.5 AT THIS TIME. WILL CONT TO MONITOR
--- NOTE | 2020-05-26 22:07 | NUR ---
PAGED AND SPOKE TO BECKI GARNETT REGARDING PT'S CHANGE OF CONDITION R HAND TREMORS STILL ONGOING AND R MOUTH TWITCHING PER BECKI NO ICU TRANSFER GIVE ATIVAN 2 MG IVP ONE TIME AND TYLENOL 650 MG SUPP Q6HR READ BACK AND VERIFIED ORDERS NOTED AND CARRIED OUT.
--- NOTE | 2020-05-26 22:15 | NUR ---
CALLED DISCUSS PT'S CONDITION AT THIS TIME.
--- NOTE | 2020-05-26 22:15 | NUR ---
PER DR. JIMENEZ TRANSFER PT TO ICU CHARGE AWARE AND PREPARING FOR THE ROOM
--- NOTE | 2020-05-26 22:20 | NUR ---
PER DR.OKHAVAT DILLARD DILANTIN 1000 MG IVPB ONE TIME AND DILANTIN 200 MG IVPB Q 12HR READ BACK AND VERIFIED ORDERS NOTED AND CARRIED OUT Addendum: 05/26/20 at 2253 by JOHNNY CARDENAS RN START DILANTIN 200 MG IVPB Q2HR IVPB TOMORROW 05/27/2020 Addendum: 05/27/20 at 0008 by JOHNNY CARDENAS RN TO START DILANTIN 200 MG IVPB EVERY 12 HR NOT Q2HR TOMORROW 05/27/2020
--- NOTE | 2020-05-26 22:26 | NUR ---
ATIVAN GIVEN 2 MG IVPB PER INSTRUCTED BY Randy FOR SEIZURE WILL CONT TO MONITOR PATIENT Addendum: 05/27/20 at 0144 by JOHNNY CARDENAS RN IVP NOT IVPB
--- NOTE | 2020-05-26 22:26 | NUR ---
TYLENOL GIVEN SUPP WILL CONTINUE TO MONITOR PT LATEST TEMP AT 99.5
[2020-05-26] MEDS: POTASSIUM CL. PREMIX PERIPHER. 50 ML IV SCH ×2 (22:28→23:30)
[2020-05-26] MEDS ORDERED: phenytoin SODIUM IV 1,000 MG in IV NS 0.9% 100 ML IV ONE (22:30)
[2020-05-26] MEDS ORDERED: ACETAMINOPHEN 650 MG/SUPP.RECT RC PRN (22:30)
[2020-05-26] MEDS ORDERED: LORAZEPAM INJ 2 MG/ML VIAL IV ONE (22:30)
--- NOTE | 2020-05-26 22:35 | NUR ---
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
[2020-05-26] MEDS: *INSULIN REGULAR(HUMULIN R)HUM 100 UNIT/ML VIAL SQ PRN (22:37)
--- NOTE | 2020-05-26 22:42 | NUR ---
rn notes: received call from rn viktoria thomas, room assignment given, 254 icu. contacted icu [id number], spoked with us/radiation monitor, agricultural labor camp manager to call us back in 10mins.
--- NOTE | 2020-05-26 23:00 | NUR ---
PT SLEEPING AT THIS TIME NO SEIZURE ACTIVITY NO R HAND TREMORS AND R MOUTH TWITCHING ATIVAN EFFECTIVE
--- NOTE | 2020-05-26 23:10 | NUR ---
TRANSFERRED PT TO ICU 254-1 VIA BED ACLS PROTOCOL PT SLEEPING AND CALM AT THIS TIME NO SEIZURE ACTIVITY. PT ON 2LPM VIA NC 02 SAT 100%. VS STABLE. ENDORSE BED SIDE REPORT TO INSTRUCTIONAL INTERVENTIONIST. ALL BELONGINGS WAS THE PT.
--- NOTE | 2020-05-26 23:22 | NUR ---
RN NOTE RECEIVED PT AND CONNECTED TO BEDSIDE MONITOR. VITAL SIGNS TAKEN AND STABLE. SEIZURE PRECAUTIONS IN PLACE, CONNECTED TO O2 @2LPM VIA NC.
--- NOTE | 2020-05-26 23:42 | NUR ---
RN NOTE DILANTIN 1000MG IV NOT AVAILABLE. FAXED ORDER TO NURSING TRANSPORT DRIVER.
[2020-05-26] MEDS ORDERED: PHENYTOIN SODIUM IV 100 MG/2ML VIAL ONE ×2 (23:55→23:59)
--- NOTE | 2020-05-26 23:56 | NUR ---
CALLED KULWINDER ALVARADO DISCUSS PLAN OF CARE THAT THE PATIENT WAS TRANSFERRED TO [facility] ICU STATUS I EXPLAINED TO HER THAT WE RELAYED EVERYTHING TO MLety AND PER BECKI GARNETT "THIS IS POST ICTAL STROKE RELATED IT IS NOT STROKE AND WE DONT NEED ANOTHER CT SCAN. DAUGHTER UPSET AND SAYING ITS STROKE RELATED. PROVIDED HEALTH EDUCATION TO TAE MIRAMONTES VERBALIZED UNDERSTANDING. Addendum: 05/27/20 at 0056 by JOHNNY CARDENAS RN "POST ICTAL SEIZURES RELATED NOT STROKE"
[2020-05-27] VITALS (28 sets, daily range): BP systolic 102–167; BP diastolic 34–96
[2020-05-27] MEDS ORDERED: phenytoin SODIUM IV 250 MG/5 ML VIAL IV ONE (00:05)
--- NOTE | 2020-05-27 00:16 | NUR ---
RN NOTE SEEN AND EXAMINED BY BECKI GARNETT. PER GRAVEL WHEELER, IF PT CONTINUES TO HAVE SEIZURES POST ADMINISTRATION OF DILANTIN 1000MG IV, NOTIFY HER FOR NEW ORDERS. EXPLAINED THAT PT HAS NOT HAD SEIZURES SINCE TRANSFER TO ICU. WILL CONTINUE TO MONITOR.
[2020-05-27] MEDS: POTASSIUM CL. PREMIX PERIPHER. 50 ML IV SCH ×4 (00:39→03:58)
--- NOTE | 2020-05-27 02:56 | NUR ---
RN NOTE SEEN AND EXAMINED BY BECKI GARNETT. UPDATE GIVEN. NO NEW ORDERS. Addendum: 05/27/20 at 0301 by PAOLA VALENTINE RN PER PAVING BLOCK CUTTER, NO LANDRUM CATHETER NEEDED AT THIS TIME
[2020-05-27 05:23] LABS: BASOPHILS # (AUTO) 0.1 /CMM (0.0-0.2); BASOPHILS % (AUTO) 0.5 % (0.0-2.0); EOSINOPHILS % (AUTO) 0.5 % (0.0-6.0); HEMATOCRIT 43 % (33-45); HEMOGLOBIN 13.3 g/dL (11.5-14.8); LYMPHOCYTES # (AUTO) 2.4 /CMM (0.8-4.8); LYMPHOCYTES % (AUTO) 17.8 % (20.0-44.0); MEAN CORPUSCULAR HGB CONC 31 g/dl (31.0-36.0); MEAN CORPUSCULAR VOLUME 89 fL (82-100); MONOCYTES # (AUTO) 1.5 /CMM (0.1-1.30); MONOCYTES % (AUTO) 11.1 % (2.0-12.0); NEUTROPHILS # (AUTO) 9.4 /CMM (1.8-8.9); NEUTROPHILS % (AUTO) 70.1 % (43.0-81.0); PLATELET COUNT (AUTO) 485 /CMM (150-450); RED BLOOD CELL COUNT(AUTO) 4.79 MIL/uL (4.0-5.2); WHITE BLOOD COUNT (AUTO) 13.4 K/uL (4.3-11.0)
[2020-05-27 05:34] LABS: BILIRUBIN,TOTAL 0.6 mg/dL (0.2-1.0); CALCIUM, SERUM 8.6 mg/dL (8.5-10.1); CREATININE 0.9 mg/dL (0.6-1.3); MAGNESIUM 2.4 mg/dL (1.8-2.4); PHOSPHORUS 2.9 mg/dL (2.5-4.9); POTASSIUM 4.2 mmol/L (3.5-5.1); TOTAL PROTEIN, SERUM 6.7 g/dL (6.4-8.2)
--- NOTE | 2020-05-27 06:02 | NUR ---
RN NOTE ATTEMPTED TO CONTACT KULWINDER (DAUGHTER) [phone] TO UPDATE ON PATIENT'S STATUS IN ICU. NO ANSWER.
--- NOTE | 2020-05-27 06:58 | NUR ---
RN CLOSING NOTES ATTEMPTED TO CONTACT DAUGHTER AGAIN BUT NO ANSWER. PT CURRENTLY IN BED IN SEMI ESQUIVEL'S POSITION. ON 2LPM OF O2 VIA NC. RESPIRATIONS EVEN AND UNLABORED, NO INDICATIONS OF ACUTE DISTRESS OR DISCOMFORT. PT IS NON VERBAL BUT RESPONSIVE TO VERBAL AND TACTILE STIMULI. ERENDIRA MIDLINE PATENT. LEFT WRIST IV PATENT WITHOUT SIGNS OF COMPLICATIONS AT SITE. CURRENTLY NPO STATUS. VITAL SIGNS STABLE. ALL NEEDS MET AND ATTENDED TO, SEIZURE PRECAUTIONS IN PLACE, SAFETY MEASURES IN EFFECT AT ALL TIMES, CALL LIGHT WITHIN REACH, WILL ENDORSE TO MORNING RN FOR CONTINUATION OF CARE.
[2020-05-27] MEDS ORDERED: PHENYTOIN SODIUM IV 100 MG/2ML VIAL IV SCH (09:00)
[2020-05-27] MEDS: PHENYTOIN SODIUM IV SCH ×2 (09:08→21:50)
[2020-05-27] MEDS: NS 0.9% IV SCH ×2 (09:08→21:50)
[2020-05-27] MEDS: CEFEPIME 2 GM in IV D5W 100 ML IV SCH ×2 (09:08→22:34)
[2020-05-27] MEDS: BLOOD SUGAR DIAGNOSTIC 1 EACH STRIP VI SCH (09:08)
[2020-05-27] MEDS: CLOTRIMAZOLE 1% 15 GM TUBE TP SCH ×2 (09:09→16:49)
[2020-05-27] MEDS: LEVETIRACETAM (500MG) 2,000 MG in IV NS 0.9% 100 ML IV SCH (09:09)
--- NOTE | 2020-05-27 09:40 | NUR ---
RN NOTE SPOKE TO DR. FLOWER REGARDING PATIENT CONDITION AND PATIENT UNABLE TO TAKE PO MEDS. PER MD, OK TO INSERT AN NGT FOR MEDS. INSULIN SLIDING SCALE ALSO CHANGED TO NPO PER MD ORDER, MORNING DOSE OF INSULIN WILL BE ADMINISTERED USING THE NPO SCALE. MD AWARE, SAFETY MAINTAINED, CALL LIGHT WITHIN REACH, WILL MONITOR CLOSELY.
[2020-05-27] MEDS: LACOSAMIDE 50 MG TABLET PO SCH ×2 (09:45→21:56)
[2020-05-27] MEDS: VALSARTAN 80 MG TABLET PO SCH (09:45)
--- NOTE | 2020-05-27 09:50 | NUR ---
RN NOTE NGT INSERTED PER MD ORDER. NGT IN LEFT NARE, VERIFIED PLACEMENT VIA AUSCULTATION, GASTRIC CONTENT WAS ASPIRATED, CONFIRMED WITH ANOTHER NURSE RAÚL TO VERIFY PLACEMENT. NGT PATENT, FLUSHED WITH WATER, SAFELY SECURED TO THE NOSE AT 60CM. SAFETY MAINTAINED, CALL LIGHT WITHIN REACH, WILL MONITOR CLOSELY.
[2020-05-27] MEDS: VANCOMYCIN 1.25 GM in IV D5W 250 ML IV SCH (10:00)
[2020-05-27] MEDS ORDERED: DEXTROSE 50%-WATER 50 ML DISP.SYRIN IV PRN (10:00)
[2020-05-27] MEDS: INSULIN REGULAR, HUMAN 100 UNIT/ML 3 ML VIAL SQ PRN ×3 (10:05→17:41)
--- NOTE | 2020-05-27 10:12 | NUR ---
RN NOTE VANCOMYCIN HELD, CONFIRMED WITH PHARMACY OK TO HOLD DUE TO VANCO TROUGH LEVEL OF 23, PHARMACY WILL DOSE ACCORDINGLY. SAFETY MAINTAINED, CALL LIGHT WITHIN REACH, WILL CONTINUE TO MONITOR CLOSELY.
--- NOTE | 2020-05-27 11:03 | NUR ---
RN NOTE CT SCAN OF THE HEAD ORDERED BY DR. MENDEZ WILL BE DONE AFTER THE EEG, MD IS OK WITH WAITING ON THE CT SCAN. WILL PERFORM CT SCAN SOON RADIOLOGY IS AVAILABLE AND EEG IS DONE. SAFETY MAINTAINED, CALL LIGHT WITHIN REACH, WILL CONTINUE TO MONITOR CLOSELY.
[2020-05-27] MEDS: BLOOD SUGAR DIAGNOSTIC 1 EACH STRIP IN SCH ×3 (12:10→23:45)
--- NOTE | 2020-05-27 13:32 | NUR ---
RN NOTE TOOK PATIENT DOWN TO CT, TOLERATED WELL, TRANSPORTED USING ACLS PROTOCOL, ON 2L O2 SATURATION 100%. NO ACUTE CHANGES TO PATIENT CONDITION, SAFETY MAINTAINED, PATIENT IS BACK IN THE ROOM, CALL LIGHT WITHIN REACH, WILL CONTINUE TO MONITOR CLOSELY.
--- NOTE | 2020-05-27 18:27 | NUR ---
RN CLOSING NOTES NO ACUTE CHANGES TO PATIENT CONDITION DURING MY SHIFT, ALL PATIENT NEEDS WERE MET, FAMILY KEPT UPDATED REGARDING PATIENTS CONDITION. PATIENT REMAINED NON VERBAL THROUGHOUT SHIFT, ON 2L O2 VIA NC, TOLERATING WELL, O2 SATURATION AT 100%. ON TELE MONITOR WITH SINUS RHYTHM NOTED, HR AT 63BPM. PATIENT KEPT NPO. NGT REMAINS IN PLACED, CHECKED PLACEMENT VIA AUSCULTATION, GASTRIC CONTENT ASPIRATED, NGT IS PATENT AND FLUSHED. IV ON LEFT HAND #22, ERENDIRA MIDLINE INTACT, PATENT AND FLUSHED WELL, NO SIGNS OF INFILTRATION NOTED. SAFETY MAINTAINED, CALL LIGHT WITHIN REACH, WILL ENDORSE TO PM NURSE FOR JAYLON.
--- NOTE | 2020-05-27 18:43 | NUR ---
RN NOTE RECEIVED A CALL FROM PHARMACY, PER PHARMACY ADMINISTER 9PM KEPPRA SOON IT GETS ON THE UNIT AND DO NOT WAIT UNTIL SCHEDULED ADMINISTRATION TIME OF 2100. WILL ADMINISTER MEDICATION IF IT BECOMES AVAILABLE DURING MY SHIFT OR WILL ENDORSE TO PM NURSE TO ADMINISTER THE MEDICATION SOON IT BECOMES AVAILABLE. SAFETY MAINTAINED, CALL LIGHT WITHIN REACH, WILL CONTINUE TO MONITOR CLOSELY.
[2020-05-27] MEDS: LEVETIRACETAM (500MG) 1,500 MG in IV NS 0.9% 100 ML IV SCH (18:52)
--- NOTE | 2020-05-27 19:30 | NUR ---
RN NOTE RECEIVED PT IN BED, NON VERBAL, SPEAKS AND UNDERSTANDS BELIZEAN ONLY, PATIENT IN NO S/SX OF ACUTE DISTRESS AT THIS TIME. PATIENT'S BREATHING IS EVEN AND UNLABORED. PATIENT IS ON 2 L OF OXYGEN VIA NC; TOLERATING WELL, SATURATING AT 97%. PATIENT ON BEDSIDE MONITOR, READING SR, HR IS 69. NOTED ERENDIRA MIDLINE, AND LEFT WRIST G22, NO S/S OF INFECTION. PATIENT ON SOFT RESTRAINTS AT BILATERAL WRISTS, CIRCULATION CHECKED, PALPABLE PERIPHERAL PULSES NOTED. NG TUBE IN PLACE, PLACEMENT WAS CHECKED, POSITIVE FOR BACKFLOW OF GASTRIC CONTENTS, AIR WAS INTRODUCED AND GURGLING SOUND WAS NOTED ON AUSCULTATION. SAFETY MEASURES IMPLEMENTED PER PROTOCOL. PATIENT BED ALARM IS ON. HEAD OF BED ELEVATED. BED IS LOCKED, IN LOWEST POSITION AND SIDE RAILS UP. CALL LIGHT WITHIN REACH OF THE PATIENT. SEIZURE PRECAUTIONS MAINTAINED. WILL CONTINUE TO MONITOR AND REASSESS FOR ANY CHANGES.
[2020-05-27] MEDS: TRAZODONE 50 MG TABLET PO SCH (21:56)
[2020-05-27] MEDS: VANCOMYCIN 1.5 GM in IV D5W 500ml IV SCH (21:57)
[2020-05-27] MEDS ORDERED: VANCOMYCIN 1 GM VIAL ONE (22:13)
[2020-05-27] MEDS ORDERED: CEFEPIME 1 GM VIAL ONE (22:18)
[2020-05-28] VITALS (35 sets, daily range): BP systolic 101–165; BP diastolic 38–116
[2020-05-28] MEDS: INSULIN REGULAR, HUMAN 100 UNIT/ML 3 ML VIAL SQ PRN ×4 (00:02→17:44)
--- NOTE | 2020-05-28 03:10 | NUR ---
RN NOTE TELEPHONE CALL FROM JAYLEEN, ROLLER EMBOSSER FROM [facility], CONFIRMING NAME OF MD CURRENTLY MANAGING PATIENT. PROVIDED REQUESTED INFORMATION. PATIENT NEEDS HIGHER LEVEL OF CARE. MANAGER SHIPPING MADE AWARE.
[2020-05-28 05:15] LABS: BASOPHILS # (AUTO) 0.1 /CMM (0.0-0.2); BASOPHILS % (AUTO) 0.6 % (0.0-2.0); EOSINOPHILS % (AUTO) 1.4 % (0.0-6.0); HEMATOCRIT 40 % (33-45); HEMOGLOBIN 12.6 g/dL (11.5-14.8); LYMPHOCYTES # (AUTO) 2.1 /CMM (0.8-4.8); LYMPHOCYTES % (AUTO) 17.3 % (20.0-44.0); MEAN CORPUSCULAR HGB CONC 31 g/dl (31.0-36.0); MEAN CORPUSCULAR VOLUME 88 fL (82-100); MONOCYTES # (AUTO) 1.3 /CMM (0.1-1.30); MONOCYTES % (AUTO) 10.6 % (2.0-12.0); NEUTROPHILS # (AUTO) 8.6 /CMM (1.8-8.9); NEUTROPHILS % (AUTO) 70.1 % (43.0-81.0); PLATELET COUNT (AUTO) 382 /CMM (150-450); RED BLOOD CELL COUNT(AUTO) 4.57 MIL/uL (4.0-5.2); WHITE BLOOD COUNT (AUTO) 12.3 K/uL (4.3-11.0)
[2020-05-28] MEDS: HYDROCODONE/APAP 5/325MG TABLET PO PRN (05:57)
[2020-05-28 06:06] LABS: CALCIUM, SERUM 8.4 mg/dL (8.5-10.1); CREATININE 0.8 mg/dL (0.6-1.3); MAGNESIUM 2.2 mg/dL (1.8-2.4); PHOSPHORUS 2.9 mg/dL (2.5-4.9); POTASSIUM 4.1 mmol/L (3.5-5.1)
[2020-05-28] MEDS: BLOOD SUGAR DIAGNOSTIC 1 EACH STRIP IN SCH ×3 (07:24→17:44)
--- NOTE | 2020-05-28 07:39 | NUR ---
RN NOTE PATIENT REMAINS IN ROOM. NO SIGNS OF RESPIRATORY DISTRESS. NPO STATUS MAINTAINED. SOFT RESTRAINTS STILL ON AT BILATERAL WRISTS. NG TUBE PATENT WITH BACKFLOW OF GASTRIC CONTENTS NOTED. SAFETY MEASURES IMPLEMENTED, BED IN LOWEST POSITION, LOCKED, SIDE RAILS UP, CALL LIGHT WITHIN REACH. ALL NEEDS AND ORDERS ADDRESSED DURING THE SHIFT. ALL DUE MEDS GIVEN ORDERED & SCHEDULED ; PATIENT TOLERATED WELL.PATIENT KEPT CLEAN AND COMFORTABLE WITHIN THE SHIFT. SEIZURE PRECAUTIONS MAINTAINED. ENDORSED TO EMILIE RN FOR CONTINUITY OF CARE.
--- NOTE | 2020-05-28 07:51 | NUR ---
RN OPENING NOTE RECEIVED PATIENT RESTING IN BED, NO SIGNS OF DISCOMFORT NOTED. PT IS A/O X1, NONVERBAL, AROUSABLE TO NAME. ON 2L O2 VIA NC, TOLERATING WELL, SATURATION AT 100%. ON TELE MONITOR WITH SR NOTED, HR AT 93BPM. PATIENT IS KEPT NPO EXCEPT MEDS, L. WRIST #22 AND ERENDIRA MIDLINE INTACT, PATENT, AND FLUSHED WELL. SEIZURE PRECAUTIONS ARE IN PLACE, NO SIGNS OF ACTIVE SEIZURE NOTED. SAFETY MAINTAINED, CALL LIGHT WITHIN REACH, WILL CONTINUE TO MONITOR CLOSELY.
[2020-05-28] MEDS: VALSARTAN 80 MG TABLET PO SCH (08:45)
[2020-05-28] MEDS: LACOSAMIDE 50 MG TABLET PO SCH ×2 (08:45→20:21)
[2020-05-28] MEDS: CLOTRIMAZOLE 1% 15 GM TUBE TP SCH ×2 (08:46→17:06)
[2020-05-28] MEDS: LEVETIRACETAM (500MG) 1,500 MG in IV NS 0.9% 100 ML IV SCH ×2 (08:52→21:23)
[2020-05-28] MEDS: PHENYTOIN SODIUM IV SCH ×2 (09:03→20:22)
[2020-05-28] MEDS: NS 0.9% IV SCH ×2 (09:03→20:22)
[2020-05-28] MEDS: CEFEPIME 2 GM in IV D5W 100 ML IV SCH ×2 (09:36→20:22)
[2020-05-28] MEDS: VANCOMYCIN 1.5 GM in IV D5W 500ml IV SCH (14:49)
--- NOTE | 2020-05-28 14:50 | NUR ---
RN NOTE CONFIRMED WITH PHARMACY THAT IT IS OK TO ADMINISTER 1500 DOSE OF VANCOMYCIN. VANCO TROUGH LEVEL WAS 23 YESTERDAY, DOSING WAS ADJUSTED ACCORDINGLY BY PHARMACY, OK TO GIVE CURRENT DOSE.
[2020-05-28] MEDS: GLUCERNA 1.2 1,000 ML BOTTLE NG PRN (17:44)
--- NOTE | 2020-05-28 19:18 | NUR ---
RN CLOSING NOTES NO ACUTE CHANGES TO PATIENT CONDITION DURING MY SHIFT, ALL PATIENT NEEDS WERE MET, FAMILY KEPT UPDATED REGARDING PATIENTS CONDITION. PATIENT REMAINED NON VERBAL THROUGHOUT SHIFT, ON 2L O2 VIA NC, TOLERATING WELL, O2 SATURATION AT 100%. ON TELE MONITOR WITH SINUS RHYTHM NOTED, HR AT 70BPM. STARTED FEEDING THROUGH NGT. NGT REMAINS IN PLACED, CHECKED PLACEMENT VIA AUSCULTATION, GASTRIC CONTENT ASPIRATED, NGT IS PATENT AND FLUSHED. IV ON LEFT HAND #22, ERENDIRA MIDLINE INTACT, PATENT AND FLUSHED WELL, NO SIGNS OF INFILTRATION NOTED. SAFETY MAINTAINED, CALL LIGHT WITHIN REACH, WILL ENDORSE TO PM NURSE FOR JAYLON.
--- NOTE | 2020-05-28 19:30 | NUR ---
RN OPENING NOTES RECEIVED PATIENT IN BED ALERT AWAKE ORIENTED X1 RESPONSE TO NAME NON VERBAL. BREATHING NORMAL NO SOB NOTED, RESPIRATION EVEN NON LABORED. TELE MONITOR READING SR IN 70'S. ON OXYGEN 2L/MIN VIA NC SATURATING 100% AT THIS TIME. NGT IN PLACE, PLACEMENT CHECKED VIA AUSCULTATION, GLUCERNA 1.2 RUNNING AT 15ML/HR TOLERATING WELL NO RESIDUAL NOTED. HOB ELEVATED. IV SITES LT WRIST, ERENDIRA INTACT PATENT FLUSHES WELL, NO S/S OF INFILTRATION NOTED. BILATERAL SOFT WRIST RESTRAINS IN PLACE FOR SAFETY. SAFETY MEASURES IN PLACE, SR UP, CALL LIGHT WITHIN REACH. WILL CONT TO MONITOR FOR JAYLON.
--- NOTE | 2020-05-28 23:45 | NUR ---
PATIENT HAD A SEIZURE ACTIVITY WHICH LASTS FOR 20 SEC. HER FACE WAS TWITCHING, CONTINUES EYES BLINKING. SEIZURE PRECAUTIONS IN PLACE, SAFETY MAINTAINED. NO HARM TO THE PATIENT DURING SEIZURE. KEPT CLEAN DRY AND COMFORTABLE. WILL CONT TO MONITOR CLOSELY.
[2020-05-29] VITALS (28 sets, daily range): BP systolic 115–172; BP diastolic 20–90
[2020-05-29] MEDS: BLOOD SUGAR DIAGNOSTIC 1 EACH STRIP IN SCH ×5 (00:55→23:48)
[2020-05-29] MEDS: INSULIN REGULAR, HUMAN 100 UNIT/ML 3 ML VIAL SQ PRN ×5 (01:09→23:51)
[2020-05-29] MEDS: LORAZEPAM INJ 2 MG/ML VIAL IV PRN ×2 (01:10→16:14)
--- NOTE | 2020-05-29 01:10 | NUR ---
PRN ATIVAN WAS GIVEN PATIENT IS ANXIOUS, AGITATED, KEEP MOVING SIDE TO SIDE. WILL CONT TO MONITOR CLOSELY.
--- NOTE | 2020-05-29 02:10 | NUR ---
ATIVAN WAS EFFECTIVE PATIENT IS RESTING COMFORTABLY IN BED, VITAL SIGNS WNL. WILL CONT TO MONITOR CLOSELY.
[2020-05-29 05:17] LABS: CALCIUM, SERUM 8.7 mg/dL (8.5-10.1); CREATININE 0.8 mg/dL (0.6-1.3)
--- NOTE | 2020-05-29 07:15 | NUR ---
RN INITIAL NOTES RECEIVED PT ASLEEP, EASY TO AROUSE. ON 02 VIA NC AT 2LPM. NO RESPIRATORY DISTRESS NOTED. NO SOB NOTED. DENIES ANY PAIN. ERENDIRA MIDLINE IN PLACE. RIGHT NARE NGT IN PLACE. TOLERATING TUBE FEEDING WELL. LANDRUM IN PLACE. NO HEMATURIA NOTED. BLE ELEVATED. WILL MONITOR
--- NOTE | 2020-05-29 07:34 | NUR ---
RN NOTES NO ACUTE CHANGES NOTED DURING SHIFT. VITAL SIGNS REMAINED WNL. NO S/S OF ACUTE DISTRESS NOTED. BED BATH GIVEN PATIENT TOLERATED WELL. MOUTH CARE DONE. RT NARE NGT IN PLACE, GLUCERNA 1.2 RUNNING AT 15ML/HR TOLERATING WELL. MOUTH CARE DONE. F/C INTACT YELLOW URINE RUNNING TO GRAVITY. BILATERAL SOFT WRIST RESTRAINS IN PLACE FOR SAFETY. SAFETY MEASURES IN PLACE, CALL LIGHT WITHIN REACH. ENDORSE TO AM NURSE FOR JAYLON.
[2020-05-29] MEDS: VALSARTAN 80 MG TABLET PO SCH (09:11)
[2020-05-29] MEDS: LEVETIRACETAM (500MG) 1,500 MG in IV NS 0.9% 100 ML IV SCH (09:11)
[2020-05-29] MEDS: LACOSAMIDE 50 MG TABLET PO SCH ×2 (09:11→21:10)
[2020-05-29] MEDS: CLOTRIMAZOLE 1% 15 GM TUBE TP SCH ×2 (09:12→16:11)
[2020-05-29] MEDS: NS 0.9% IV SCH ×2 (09:21→20:35)
[2020-05-29] MEDS: PHENYTOIN SODIUM IV SCH ×2 (09:21→20:35)
[2020-05-29] MEDS: CEFEPIME 2 GM in IV D5W 100 ML IV SCH ×2 (10:17→22:44)
[2020-05-29] MEDS: HYDROCODONE/APAP 5/325MG TABLET PO PRN (11:49)
--- NOTE | 2020-05-29 13:03 | NUR ---
This SW received a call from patient's daughter Kelly. Per Kelly, she would like information regarding Power of Rx Specialist. Patient is currently not at baseline and this SW informed Kelly that Conservatorship may be the next step. This SW to provide information regarding conservatorship and [email or web address] .
[2020-05-29] MEDS: VANCOMYCIN 1.5 GM in IV D5W 500ml IV SCH (14:33)
--- NOTE | 2020-05-29 16:00 | NUR ---
RN NOTES PT WENT TO MRI BRAIN WO CONTRAST AT 1430. BACK IN THE UNIT AT 1530. IN STABLE CONDITION
[2020-05-29] MEDS: GLUCERNA 1.2 1,000 ML BOTTLE NG PRN (16:14)
[2020-05-29] MEDS ORDERED: phenytoin SODIUM IV 500 MG in IV NS 0.9% 50 ML IV ONE (16:30)
--- NOTE | 2020-05-29 18:34 | NUR ---
RN CLOSING NOTES NO SIGNIFICANT CHANGE NOTED. NO RESPIRATORY DISTRESS NOTED. NO SOB NOTED. NO SIGNS OF PAIN NOTED. KEPT COMFORTABLE. KEPT CLEAN AND DRY. TX ORDERED. WILL ENDORSE FOR CONTINUITY OF CARE
--- NOTE | 2020-05-29 19:30 | NUR ---
SLPS NOTE RECEIVED PT IN BED AWAKE. ALERT BUT MUMBLES, TAIWANESE SPEAKING, NO SOB, NO DISTRESS OR DISCOMFORT NOTED. NO S/S OF PAIN NOTED. ON 2L VIA NC O2 SAT 100 %. ON TELE MONITOR SR HR 83. R NARE NGT INTACT AND PATENT INFUSING GLUCERNA AT 15 ML/HR, NO RESIDUAL NOTED. ERENDIRA MIDLINE INTACT AND PATENT TKO NS 10 ML/HR, NO S/S OF INFILTRATION NOTED. ALSO LT WRIST SL #22 G INTACT AND PATENT. NO SS OF HYPO OR HYPERGLYCEMIA NOTED. F/C INTACT AND PATENT DRAINING YELLOWISH COLOR URINE. BILATERAL SOFT WRIST RESTRAINTS ON. SKIN AROUND RESTRAINTS WNL. ALL NEEDS ATTENDED. SIDE RAILS UP X 2 AND CALL LIGHT WITHIN REACH. VSS. KEPT HER DRY AND CLEAN. CONTINUE TO MONITOR HER. Addendum: 05/29/20 at 2108 by SIM GROVE RN LT WRIST SL WAS ACCIDENTLY PULLED OUT. NO BLEEDING NOTED. SECURED THE SITE WITH 2X 2 GAUZE.
--- NOTE | 2020-05-29 21:37 | NUR ---
SLAG MOTOR OPERATOR NOTE DR MENDEZ INFORMED REGARDING MRI RESULT. NO NEW ORDER GIVEN.
[2020-05-29] MEDS: LEVETIRACETAM (500MG) 2,000 MG in IV NS 0.9% 100 ML IV SCH (21:43)
[2020-05-30] VITALS (26 sets, daily range): BP systolic 98–164; BP diastolic 45–109
[2020-05-30 04:47] LABS: CALCIUM, SERUM 8.8 mg/dL (8.5-10.1); CREATININE 0.7 mg/dL (0.6-1.3); MAGNESIUM 2.1 mg/dL (1.8-2.4); PHOSPHORUS 3.2 mg/dL (2.5-4.9); POTASSIUM 3.3 mmol/L (3.5-5.1)
[2020-05-30] MEDS: BLOOD SUGAR DIAGNOSTIC 1 EACH STRIP IN SCH ×4 (05:41→23:29)
[2020-05-30] MEDS: INSULIN REGULAR, HUMAN 100 UNIT/ML 3 ML VIAL SQ PRN ×4 (05:45→23:33)
[2020-05-30 06:19] LABS: BASOPHILS # (AUTO) 0.1 /CMM (0.0-0.2); BASOPHILS % (AUTO) 1.1 % (0.0-2.0); EOSINOPHILS % (AUTO) 2.6 % (0.0-6.0); HEMATOCRIT 40 % (33-45); HEMOGLOBIN 12.7 g/dL (11.5-14.8); LYMPHOCYTES # (AUTO) 2.2 /CMM (0.8-4.8); LYMPHOCYTES % (AUTO) 16.4 % (20.0-44.0); MEAN CORPUSCULAR HGB CONC 32 g/dl (31.0-36.0); MEAN CORPUSCULAR VOLUME 88 fL (82-100); MONOCYTES # (AUTO) 1.7 /CMM (0.1-1.30); MONOCYTES % (AUTO) 12.6 % (2.0-12.0); NEUTROPHILS # (AUTO) 9.1 /CMM (1.8-8.9); NEUTROPHILS % (AUTO) 67.3 % (43.0-81.0); PLATELET COUNT (AUTO) 278 /CMM (150-450); RED BLOOD CELL COUNT(AUTO) 4.55 MIL/uL (4.0-5.2); WHITE BLOOD COUNT (AUTO) 13.5 K/uL (4.3-11.0)
--- NOTE | 2020-05-30 06:27 | NUR ---
ACCORDION MAKER NOTE PT IN BED AWAKE. NO SOB, NO DISTRESS OR DISCOMFORT NOTED. NO S/S OF PAIN NOTED. REMAIN ON O2 2L VIA N/C O2 SAT 100%. ON TELE MONITOR SR 84. F/C INTACT AND PATENT DRAINING YELLOWISH COLOR URINE. ON NGT RT NARE GLUCERNA INFUSING AT 15 ML/HR. 0 ML RESIDUAL NOTED. KEPT HOB ELEVATED. ERENDIRA MID LINE INTACT AND PATENT. TKO NS. NO S/S OF INFILTRATION NOTED. REPOSITION HER Q2H, KEPT HER DRY AND CLEAN. SIDE RAILS UP X 3 AND CALL LIGHT WITHIN REACH. WILL ENDORSE TO DAY SHIFT NURSE FOR CONTINUE TO CARE.
[2020-05-30] MEDS: VANCOMYCIN 1.5 GM in IV D5W 500ml IV SCH (07:35)
--- NOTE | 2020-05-30 08:00 | NUR ---
ICU/RN INITIAL NOTES,AM RECEIVED REPORT FROM NIGHT NURSE. PT ALERT, AWAKE. ON 2LITERS NASAL CANULA, NO ACUTE DISTRESS NOTED. PT FOLLOWS SIMPLE COMMANDS, SOME CONFUSION NOTED. PT ON TELE, SINUS. LANDRUM CATH IN PLACE, DRAINING YELLOW URINE. NO SEIZURES NOTED OVER NIGHT. SEIZURE PRECAUTIONS TAKEN. TUBE FEEDING INFUSING, NO RESIDUAL NOTED, PLACEMENT VERIFIED. SWALLOW EVAL PENDING FOR THIS AM. RIGHT UPPER ARM MIDLINE PATENT AND INTACT, NO S/S OF INFECTION OR INFILTRATION NOTED. ALL NEEDS WILL BE ATTENDED TO, SAFETY MEASURES TAKEN, BED IN LOW POSITION, SIDE RAILS UP, CALL LIGHT WITHIN REACH.
[2020-05-30] MEDS: VALSARTAN 80 MG TABLET PO SCH ×2 (09:04→21:02)
[2020-05-30] MEDS: LACOSAMIDE 50 MG TABLET PO SCH ×2 (09:04→21:02)
[2020-05-30] MEDS: CLOTRIMAZOLE 1% 15 GM TUBE TP SCH ×2 (09:05→17:19)
[2020-05-30] MEDS: CEFEPIME 2 GM in IV D5W 100 ML IV SCH ×2 (09:05→21:00)
[2020-05-30] MEDS: LEVETIRACETAM (500MG) 2,000 MG in IV NS 0.9% 100 ML IV SCH ×2 (09:18→21:00)
[2020-05-30] MEDS ORDERED: POTASSIUM CHLORIDE 20 MEQ POWDER PACKET GT ONE (09:30)
[2020-05-30] MEDS ORDERED: POTASSIUM CHLORIDE 20 MEQ TAB.PRT.SR PO ONE (09:30)
[2020-05-30] MEDS: PHENYTOIN SODIUM IV SCH ×2 (10:43→21:44)
[2020-05-30] MEDS: NS 0.9% IV SCH ×2 (10:43→21:44)
--- NOTE | 2020-05-30 11:30 | NUR ---
ICU/RN: SWALLOW EVAL DONE, PT WILL BE PLACED ON PUREE DIET. PT IS A FEEDER. ASPIRATION PRECAUTIONS NEEDED.
--- NOTE | 2020-05-30 14:00 | NUR ---
ICU/RN: ZOOM CALL WITH DAUGHTER. UPDATES GIVEN.
--- NOTE | 2020-05-30 16:00 | NUR ---
AT BEDSIDE. PT ASSESSED. NO NEW ORDERS. WILL CONTINUE CARE.
--- NOTE | 2020-05-30 19:10 | NUR ---
TIP STITCHER OPENING NOTES: Rec'd pt resting in bed, A&Ox1-2, speaking little Omani. Mainly Omani speaking. On 2LPM NC tolerating well. No SOB or resp distress noted at this time. SR on tele monitor. ERENDIRA midline patent and flushed w/ dressing c/d/i. Zambrano cath in place patent and draining urine via gravity. No pain noted at this time. Safety measures in place. Will continue to monitor.
--- NOTE | 2020-05-30 19:11 | NUR ---
ICU/RN: ENDING NOTES,AM PT REMAINS STABLE. ON NASAL CANULA 4LITERS NO DISTRESS. SINUS ON TELE. ALL NEEDS ATTENDED TO. GTUBE FEEDING INFUSING, TOLERATING WELL. LANDRUM CATH DRAINING URINE. SAFETY MEASURES TAKEN, BED IN LOW POSITION, SIDE RAILS UP, CALL LIGHT WITHIN REACH. WILL CONTINUE CARE.
[2020-05-30 19:59] LABS: CHLORIDE,URINE RANDOM 114 mmol/L (55-125); POTASSIUM RNDM,URINE 20 mmol/L (25-125); URINE SODIUM, RANDOM 92 mmol/l (40-220)
--- NOTE | 2020-05-30 20:21 | NUR ---
PRODUCTION SUPPORT ANALYST NOTE: Pt noted w/ anxiety, crying out and screaming. Attempted to calm pt. 2007: Paged Dr. Sol 2019: Dr. Sol called back. Explained situation and gave order for Ativan 1mp PO once. Order noted and carried out.
[2020-05-30] MEDS ORDERED: LORAZEPAM 1 MG TABLET PO ONE (20:30)
[2020-05-30 20:42] LABS: OSMOLALITY,URINE 335 mOS/kg (340-1090)
[2020-05-30] MEDS ORDERED: NS 0.9% IV SCH (21:00)
[2020-05-30] MEDS ORDERED: PHENYTOIN SODIUM IV SCH (21:00)
[2020-05-31] VITALS (16 sets, daily range): BP systolic 72–156; BP diastolic 25–81
[2020-05-31] MEDS: VANCOMYCIN 1.5 GM in IV D5W 500ml IV SCH ×2 (01:09→19:58)
[2020-05-31 04:37] LABS: BASOPHILS # (AUTO) 0.1 /CMM (0.0-0.2); BASOPHILS % (AUTO) 0.4 % (0.0-2.0); HEMATOCRIT 36 % (33-45); HEMOGLOBIN 11.5 g/dL (11.5-14.8); LYMPHOCYTES # (AUTO) 1.5 /CMM (0.8-4.8); LYMPHOCYTES % (AUTO) 12.2 % (20.0-44.0); MEAN CORPUSCULAR HGB CONC 32 g/dl (31.0-36.0); MEAN CORPUSCULAR VOLUME 87 fL (82-100); MONOCYTES # (AUTO) 1.2 /CMM (0.1-1.30); NEUTROPHILS # (AUTO) 9.4 /CMM (1.8-8.9); NEUTROPHILS % (AUTO) 75.4 % (43.0-81.0); PLATELET COUNT (AUTO) 304 /CMM (150-450); RED BLOOD CELL COUNT(AUTO) 4.21 MIL/uL (4.0-5.2); WHITE BLOOD COUNT (AUTO) 12.4 K/uL (4.3-11.0)
[2020-05-31 05:26] LABS: ALBUMIN 2.6 g/dL (3.4-5.0); BILIRUBIN,TOTAL 0.4 mg/dL (0.2-1.0); CALCIUM, SERUM 8.2 mg/dL (8.5-10.1); CREATININE 0.7 mg/dL (0.6-1.3); MAGNESIUM 1.7 mg/dL (1.8-2.4); PHOSPHORUS 2.4 mg/dL (2.5-4.9); POTASSIUM 3.1 mmol/L (3.5-5.1); TOTAL PROTEIN, SERUM 6.5 g/dL (6.4-8.2)
[2020-05-31] MEDS: BLOOD SUGAR DIAGNOSTIC 1 EACH STRIP IN SCH ×4 (05:38→23:12)
[2020-05-31] MEDS: INSULIN REGULAR, HUMAN 100 UNIT/ML 3 ML VIAL SQ PRN ×4 (05:40→23:11)
--- NOTE | 2020-05-31 07:03 | NUR ---
CHIEF DOG LICENSE INSPECTOR CLOSING NOTES: Pt remains stable throughout shift. On 2LPM NC tolerating well. No SOB or resp distress noted throughout shift. SR on tele monitor. No acute changes noted throughout shift. ERENDIRA midline patent and flushing. Dressing c/d/i. Zambrano cath in place patent and draining urine via gravity. All due meds given as ordered. Kept clean/dry. Safety measures in place. Will endorse to AM nurse for JAYLON.
--- NOTE | 2020-05-31 07:41 | NUR ---
RN OPENING NOTES RECEIVED PATIENT RESTING IN BED, ON ROOM AIR, O2 SATURATION AT 93%, PATIENT TOLERATING WELL, NO SIGNS OF RESPIRATORY DISTRESS NOTED, PLACED ON 2L NC FOR PATIENT COMFORT, O2 SATURATION AT 100% ON 2L O2 VIA NC. PATIENT IS A/O X1-2, CONFUSED, ATTEMPTING TO GET OUT OF BED. PATIENT IS REORIENTED, EDUCATION PROVIDED, FREQUENT REINFORCEMENT NEEDED. BED IS LOCKED AND LOWERED, ALARM SET TO THE HIGHEST SETTING. PATIENT IS ABLE TO FOLLOW SIMPLE COMMANDS. ON TELE MONITOR WITH SR NOTED. HR AT 95BPM. LANDRUM CATHETER IS INTACT, IN PLACE, AND DRAINING YELLOW URINE BY GRAVITY. ERENDIRA MIDLINE IS INTACT, PATENT, AND FLUSHES WELL. NO SIGNS OF INFILTRATION NOTED. PATIENT SAFETY MAINTAINED, ALL NEEDS ATTENDED, CALL LIGHT WITHIN REACH, WILL CONTINUE TO MONITOR CLOSELY.
[2020-05-31] MEDS: CEFEPIME 2 GM in IV D5W 100 ML IV SCH ×2 (08:29→22:07)
[2020-05-31] MEDS: LACOSAMIDE 50 MG TABLET PO SCH ×2 (08:30→20:17)
[2020-05-31] MEDS: Magnesium 1GM/D5W 100ML PREMIX 100 ML IV SCH ×2 (08:30→09:34)
[2020-05-31] MEDS: VALSARTAN 80 MG TABLET PO SCH ×2 (08:31→20:18)
[2020-05-31] MEDS: CLOTRIMAZOLE 1% 15 GM TUBE TP SCH ×2 (08:31→17:13)
[2020-05-31] MEDS: LEVETIRACETAM (500MG) 2,000 MG in IV NS 0.9% 100 ML IV SCH (09:33)
[2020-05-31] MEDS: POTASSIUM PHOSPHATE MM 7.5 MMOL in IV NS 0.9% 100 ML IV SCH ×2 (09:33→12:30)
[2020-05-31] MEDS: NS 0.9% IV SCH (09:34)
[2020-05-31] MEDS: PHENYTOIN SODIUM IV SCH (09:34)
--- NOTE | 2020-05-31 09:43 | NUR ---
RN NOTE PATIENT DOWNGRADED TO TELE PER MD ORDER. TRANSFERRED PATIENT USING ACLS PROTOCOL. PATIENT TOLERATED TRANSFER WELL, VITAL SIGNS STABLE, NO ACUTE EVENTS DURING THE TRANSFER. PATIENT SAFETY MAINTAINED, CALL LIGHT WITHIN REACH, REPORT GIVEN TO KERRI EMMANUEL FOR JAYLON. 0900 MEDS WILL BE GIVEN BY KERRI DUE TO MEDICATION NOT BEING AVAILABLE PRIOR TO TRANSFER.
[2020-05-31] MEDS ORDERED: POTASSIUM CHLORIDE 20 MEQ POWDER PACKET NG SCH (10:00)
--- NOTE | 2020-05-31 11:57 | NUR ---
RN NOTES: RECEIVED PT FROM ICU, VITALS WNL, NO SIGNS OF RESPIRATORY DISTRESS, SOB, DIFFICULTY BREATHING, MEDICATIONS WERE GIVEN, SAFETY PRECAUTIONS MAINTAINED WILL CONTINUE TO MONITOR.
[2020-05-31] MEDS: LORAZEPAM INJ 2 MG/ML VIAL IV PRN (12:36)
--- NOTE | 2020-05-31 14:18 | NUR ---
RN NOTES: PT WAS VERY AGITATED, ANXIOUS, CRYING, TRING TO PULL OUT HER IV AND LANDRUM, ATIVAN WAS ADMINISTERED.
--- NOTE | 2020-05-31 14:43 | NUR ---
RN NOTES: PT WAS PUT ON RESTRAINTS SHE WAS TRYING TO PULL HER IV AND CATHETER OUT MULTIPLE TIMES. PATIENT DAUGHTER KULWINDER IS AWARE OF IT, PER DOCTORS ORDER DC DILANTIN. ALL SAFETY MEASURES MAINTAINED. CALL LIGHT WITHIN REACH WILL CONTINUE TO MONITOR CLOSELY.
--- NOTE | 2020-05-31 15:55 | NUR ---
PATIENT CONFUSED TRYING GET OUT OF BED ,MD MADE AWARE ORDERED SITTER,NURSING SUP MADE AWARE,FALL RISK PRECAUTION OBSERVED.
--- NOTE | 2020-05-31 18:37 | NUR ---
RN CLOSING NOTES: PT IN BED AWAKE A/O X1,2, CONFUSED GETS AGITATED EASILY. PT ON RA TOLERATING WELL. NO SIGNS OF RESPIRATORY DISTRESS, SOB, DIFFICULTY BREATHING OR PAIN. NO ACUTE CHANGES DURING THE SHIFT BESIDES PATIENT TRYING TO GET UP FROM BED AND PULL OUT ON IV AND CATHETER. PTS IV SITE WAS CHANGED TO LEFT UPPER ARM MIDLINE ITS INTACT, PATENT AND FLUSHED WELL. ALL SAFETY MEASURES MAINTAINED, CALL LIGHT WITHIN REACH, WILL ENDORSE TO PM NURSE FOR CONTINUATION OF CARE.
--- NOTE | 2020-05-31 19:15 | NUR ---
RN OPENING NOTES PT IS AWAKE AND ALERT IN BED. ORIENTED X 2 WITH PERIODS OF CONFUSION,. REORIENTED PT PRN. PT IS ON ROOM AIR. RESPIRATIONS EVEN AND UNLABORED. BILATERAL SOFT WRIST RESTRAINTS IN PLACE ORDERED. LANDRUM CATHETER PATENT AND IN PLACE DRAINING CLEAR YELLOW URINE. BRAYDEN MIDLINE PATENT AND FLUSHING WELL WITHOUT COMPLICATIONS AT SITE. SEIZURE PRECAUTIONS IN PLACE, CALL LIGHT WITHIN REACH, SAFETY MEASURES IN PLACE, BED ALARM ON, 1:1 SITTER AT BEDSIDE. WILL MONITOR PATIENT.
[2020-05-31] MEDS: LEVETIRACETAM SOL (5 ML) 100 MG/ML UDC PO SCH (20:17)
[2020-05-31] MEDS ORDERED: PHENYTOIN SUSP UDC 100 MG/4 ML UDC PO SCH (21:00)
--- NOTE | 2020-05-31 21:28 | NUR ---
RN NOTE SPOKE TO KULWINDER (DAUGHTER) AND GAVE UPDATE ON PATIENT'S CONDITION.
[2020-06-01] VITALS: BP 137/73
--- NOTE | 2020-06-01 | NUR ---
RN NOTE BED BATH AND AM CARE COMPLETED. PT TOLERATED WELL.
[2020-06-01 04:00] VITALS: BP 140/70
[2020-06-01] MEDS: BLOOD SUGAR DIAGNOSTIC 1 EACH STRIP IN SCH ×4 (05:22→23:16)
[2020-06-01] MEDS: INSULIN REGULAR, HUMAN 100 UNIT/ML 3 ML VIAL SQ PRN ×4 (05:25→23:17)
--- NOTE | 2020-06-01 06:41 | NUR ---
RN CLOSING NOTES PT IS SLEEPING IN BED BUT EASILY AROUSABLE. WITH PERIODS OF CONFUSION,. PROVIDED REORIENTATION NEEDED. PT ON 2 L OF O2 VIA NC. RESPIRATIONS EVEN AND UNLABORED. BILATERAL SOFT WRIST RESTRAINTS IN PLACE ORDERED. LANDRUM CATHETER PATENT AND IN PLACE DRAINING CLEAR YELLOW URINE. BRAYDEN MIDLINE PATENT AND FLUSHING WELL WITHOUT COMPLICATIONS AT SITE. SEIZURE PRECAUTIONS IN PLACE, CALL LIGHT WITHIN REACH, SAFETY MEASURES IN PLACE, BED ALARM ON, 1:1 SITTER AT BEDSIDE. WILL ENDORSE TO MORNING RN FOR CONTINUATION OF CARE.
[2020-06-01 07:15] LABS: CALCIUM, SERUM 8.4 mg/dL (8.5-10.1); CREATININE 0.7 mg/dL (0.6-1.3); POTASSIUM 3.1 mmol/L (3.5-5.1)
--- NOTE | 2020-06-01 07:39 | NUR ---
TELEVISION MAINTENANCE WORKER NOTE PATIENT IN BED, AWAKE ALERT WITH CONFUSION, ON 2L O2 VIA NC NO SOB NOTED AT THIS TIME ON TELE MONITOR SR HR 89 WITH LANDRUM CATH TO GRAVITY , BRAYDEN MID LINE IN PLACE AND FLUSHED WELL , BED IN LOWEST AND LOCKED POSITION,PADDED SIDE RAILS IN PLACE , WITH SOFT RESTRAIN BOTH HANDS DUE TO FALL RISK , ALL NEEDS ATTENDED WILL CONT TO MONITOR
[2020-06-01 08:00] VITALS: BP 143/67
[2020-06-01] MEDS ORDERED: POTASSIUM CHLORIDE 20 MEQ TAB.PRT.SR PO ONE (08:00)
[2020-06-01] MEDS: CEFEPIME 2 GM in IV D5W 100 ML IV SCH ×2 (08:41→21:27)
[2020-06-01] MEDS: LEVETIRACETAM SOL (5 ML) 100 MG/ML UDC PO SCH ×2 (08:44→21:30)
[2020-06-01] MEDS: LACOSAMIDE 50 MG TABLET PO SCH ×2 (08:48→21:30)
[2020-06-01] MEDS: CLOTRIMAZOLE 1% 15 GM TUBE TP SCH ×2 (08:49→16:17)
[2020-06-01] MEDS: VALSARTAN 80 MG TABLET PO SCH ×2 (08:50→21:30)
[2020-06-01] MEDS ORDERED: POTASSIUM CHLORIDE 20 MEQ POWDER PACKET PO ONE (09:00)
--- NOTE | 2020-06-01 09:04 | NUR ---
SOUND EFFECTS SUPERVISOR NOTE RECEIVED CALL FROM DR MENDEZ WITH ORDER TO DO EEG ,ORDER CARRIED OUT
--- NOTE | 2020-06-01 09:15 | NUR ---
FIELD SERVICE TECHNICIAN NOT UNABLE TO CRUSH Ava OHARA PATIENT ON PUREE DIET PHARMACY NOTIFIED WITH ORDER KCL , WILL F\U
--- NOTE | 2020-06-01 10:44 | NUR ---
ELECTRICAL TRYOUT PERSON NOTE ST AT BEDSIDE OK TO CONT PUREE DIET
--- NOTE | 2020-06-01 11:48 | NUR ---
telehealth coordinator note dr may at bedside talking with daughter aware that patient get confused and anxious
[2020-06-01 12:00] VITALS: BP 124/61
[2020-06-01] MEDS ORDERED: LEVE100S PO (12:11)
[2020-06-01] MEDS ORDERED: LACO50TA2 PO (12:11)
[2020-06-01] MEDS: VANCOMYCIN 1.5 GM in IV D5W 500ml IV SCH (12:13)
--- NOTE | 2020-06-01 12:13 | NUR ---
television repair teacher note per pharmacy ok to give vancomycin
[2020-06-01] MEDS: LORAZEPAM INJ 2 MG/ML VIAL IV PRN (13:03)
--- NOTE | 2020-06-01 13:20 | NUR ---
COMMUTATOR UNDERCUTTER NOTE NOTE TWITCHING RT HAND AND SHAKING, BP 124/61 ,PATIENT VEERY RESTLESS ATIVAN 1 MG IV GIVEN ORDERED WILL MONITOR
--- NOTE | 2020-06-01 14:50 | NUR ---
telephone operator note soft restrain removed ,sitter at bedside, all needs attended
[2020-06-01 16:00] VITALS: BP 135/98
--- NOTE | 2020-06-01 17:00 | NUR ---
YARN DUMPER NOTE DR JUARES AT BEDSIDE NOTIFIED THAT PATIENT BECOME MORE CONFUSED AND BECOME TALK TO HER JC , AND AGITATED,NO NEW MEDICATION A FOR AGITATION GIVEN ALSO AWARE THAT HAS 1 EPISODE OF SMALL SEIZURE WITH TWITCHING RT HAND AND ATIVAN 1 MG IV WAS GIVEN EARLIER ,ORDERED PT EVAL AND F\U WITH EEG
--- NOTE | 2020-06-01 17:43 | NUR ---
REGULATORY SUBMISSIONS SPECIALIST NOTE EEG DOING NOW
[2020-06-01] MEDS: FLUCONAZOLE (100 MG) 100 MG TABLET PO SCH (18:36)
--- NOTE | 2020-06-01 18:39 | NUR ---
HELPER ANIMAL LABORATORY NOTE EEG COMPLETED, ALL NEEDS ATTENDED ,SITTER AT BEDSIDE
--- NOTE | 2020-06-01 19:19 | NUR ---
RN OPENING NOTES PT IN BED IN SEMI ESQUIVEL'S POSITION. PT IS ORIENTED TO NAME. 1:1 SITTER AT BEDSIDE FOR SFATEY ORDERED. PT IS ON 2L OF O2 VIA NC. RESPIRATIONS EVEN AND UNLABORED. NO INDICATIONS OF PAIN OR DISCOMFORT. BRAYDEN MIDLINE PATENT AND FLUSHING WELL WITHOUT COMPLICATIONS NOTED AT SITE. LANDRUM CATHETER PATENT AND IN PLACE DRAINING LIV YELLOW URINE. PENDING PT EVAL ORDERED. SAFETY MEASURES IN PLACE, WILL MONITOR PATIENT.
[2020-06-01 20:00] VITALS: BP 135/66
--- NOTE | 2020-06-01 23:21 | NUR ---
RN NOTE PT IS SLEEPING QUIETLY IN BED BUT EASILY AROUSABLE TO EXTERNAL STIMULI. 1:1 SITTER AT BEDSIDE.
[2020-06-02] VITALS: BP_SYST 132; BP_SYST 137; BP_DIAS 64
[2020-06-02 04:00] VITALS: BP 133/55
[2020-06-02] MEDS: BLOOD SUGAR DIAGNOSTIC 1 EACH STRIP IN SCH ×4 (05:46→23:47)
[2020-06-02] MEDS: INSULIN REGULAR, HUMAN 100 UNIT/ML 3 ML VIAL SQ PRN ×4 (05:47→23:50)
[2020-06-02] MEDS: VANCOMYCIN 1.5 GM in IV D5W 500ml IV SCH (06:04)
--- NOTE | 2020-06-02 07:00 | NUR ---
RN CLOSING NOTES PT IN BED IN SEMI ESQUIVEL'S POSITION ALERT AND ORIENTED TO NAME WITH PERIODS OF CONFUSION. 1:1 SITTER AT BEDSIDE FOR SFATEY ORDERED. PT IS ON 2L OF O2 VIA NC. RESPIRATIONS EVEN AND UNLABORED. NO INDICATIONS OF PAIN OR DISCOMFORT. BRAYDEN MIDLINE PATENT AND FLUSHING WELL WITHOUT COMPLICATIONS NOTED AT SITE. LANDRUM CATHETER PATENT AND IN PLACE DRAINING LIV YELLOW URINE. PENDING PT EVAL ORDERED.NO SEIZURE ACTIVITY NOTED THROUGHOUT SHIFT. SAFETY MEASURES IN PLACE, ALL DUE MEDICATIONS ADMINISTERED, WILL ENDORSE TO MORNING RN FOR CONTINUATION OF CARE.
[2020-06-02 07:22] LABS: BASOPHILS # (AUTO) 0.1 /CMM (0.0-0.2); EOSINOPHILS % (AUTO) 4.2 % (0.0-6.0); HEMATOCRIT 37 % (33-45); LYMPHOCYTES # (AUTO) 2.2 /CMM (0.8-4.8); LYMPHOCYTES % (AUTO) 26.3 % (20.0-44.0); MEAN CORPUSCULAR HGB CONC 32 g/dl (31.0-36.0); MEAN CORPUSCULAR VOLUME 87 fL (82-100); MONOCYTES % (AUTO) 11.6 % (2.0-12.0); NEUTROPHILS # (AUTO) 4.8 /CMM (1.8-8.9); NEUTROPHILS % (AUTO) 56.9 % (43.0-81.0); PLATELET COUNT (AUTO) 311 /CMM (150-450); RED BLOOD CELL COUNT(AUTO) 4.26 MIL/uL (4.0-5.2); WHITE BLOOD COUNT (AUTO) 8.4 K/uL (4.3-11.0)
[2020-06-02 07:36] LABS: CALCIUM, SERUM 8.7 mg/dL (8.5-10.1); CREATININE 0.7 mg/dL (0.6-1.3); MAGNESIUM 2.2 mg/dL (1.8-2.4); PHOSPHORUS 2.8 mg/dL (2.5-4.9)
[2020-06-02 08:00] VITALS: BP_SYST 116; BP_SYST 145; BP_DIAS 47; BP_DIAS 87
--- NOTE | 2020-06-02 08:00 | NUR ---
GASTROENTEROLOGY NURSE PRACTITIONER RECEIVED PT IN BED AWAKE CONFUSED SAD GUARDED CRYING, SITTER AT BEDSIDE, PROVIDED CARE FOR PT IV ACCESS PATENT, LANDRUM CATH PATENT CLEAR URINE PRESENT, TURN AND REPOSITION IN BED CALL LIGHT W/ IN REACH SITTER AT BEDSIDE SAFETY MEASURES TAKEN WILL CONTINUE TO MONITOR.
[2020-06-02] MEDS: LACOSAMIDE 50 MG TABLET PO SCH ×2 (08:45→21:39)
[2020-06-02] MEDS: LEVETIRACETAM SOL (5 ML) 100 MG/ML UDC PO SCH ×2 (08:45→21:39)
[2020-06-02] MEDS: CEFEPIME 2 GM in IV D5W 100 ML IV SCH ×2 (08:45→21:38)
[2020-06-02] MEDS: VALSARTAN 80 MG TABLET PO SCH ×2 (08:46→21:39)
[2020-06-02] MEDS: CLOTRIMAZOLE 1% 15 GM TUBE TP SCH ×2 (08:47→16:44)
[2020-06-02] MEDS: FLUCONAZOLE (100 MG) 100 MG TABLET PO SCH (08:47)
[2020-06-02] MEDS: LORAZEPAM INJ 2 MG/ML VIAL IV PRN (10:54)
[2020-06-02] MEDS: GLUCERNA SHAKE 237 ML CAN PO SCH ×2 (10:55→16:44)
[2020-06-02 12:00] VITALS: BP 159/75
--- NOTE | 2020-06-02 15:29 | NUR ---
assistant superintendent for curriculum DC INSTRUCTIONS RECEIVED, PT IN BED RESTING NO EPISODES OF AGITATION NOTED DURING SHIFT PT SAD AT TIMES, PT HAS BEEN OFF RESTRAINT SINCE 06/01/2020 1600 WILL BE 24 HRS AT 06/02/20 1600, CALLED TO GIVE REPORT AT [facility] CASE MANAGEMENT WORKING ON TRANSFER WILL COMPLETE PAPERS AND DC ONCE OK TO ACCEPT PT.
[2020-06-02 16:00] VITALS: BP 108/73
[2020-06-02] MEDS: HYDROCODONE/APAP 5/325MG TABLET PO PRN ×2 (17:28→23:29)
--- NOTE | 2020-06-02 19:25 | NUR ---
RN OPENING NOTES: RECEIVED PT A/OX1; PATIENT NOTED TO BE CONFUSED IN BED RESTING COMFORTABLY. PATIENT IN NO S/SX OF ACUTE DISTRESS AT THIS TIME. NO SOB NOTED. PATIENT'S BREATHING IS EVEN AND UNLABORED. PATIENT IS ON ROOM AIR ; TOLERATING WELL-SATURATING @96% AT TIME OF RECEIVED. PATIENT ON TELE MONITORING READING SINUS RHYTHM HR IS @90s. NOTED IV SITE ON L UA MIDLINE # 18; PATENT, INTACT AND FLUSHING WELL NO S/S OF INFECTION OR INFILTRATION. PATIENT HAS LANDRUM CATH IN PLACE, WITH MODERATE YELLOW URINE OUTPUT. PATIENT HAS A SITTER ON HER ROOM. SAFETY MEASURES HAVE BEEN PROVIDED AND IMPLEMENTED. PATIENT BED ALARM IS ON. HEAD OF BED ELEVATED. BED IS LOCKED, IN LOWEST POSITION AND SIDE RAILS UP. CALL LIGHT WITHIN REACH OF THE PATIENT. WILL CONTINUE TO MONITOR AND REASSESS FOR ANY CHANGES.
--- NOTE | 2020-06-02 19:44 | NUR ---
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 As per AM MANUELN, patient not for discharge today. per ANNMARIE Lacey's notes today at 4pm, GURU ANNMARIE to call intake tomorrow AM for room number. Transport cancelled at this time. Addendum: 06/02/20 at 2222 by QUENTIN SOW RN 902 ANNMARIE Lacey made aware of the above
[2020-06-02 20:00] VITALS: BP 137/58
[2020-06-02] MEDS: VORICONAZOLE 200 MG TABLET PO SCH (21:40)
--- NOTE | 2020-06-02 22:00 | NUR ---
RN NOTES NO NOTED CHANGES TO PATIENT CONDITION/STATUS. DRAFTER CIVIL ENGINEERING MADE AWARE. WILL CONTINUE TO MONITOR AND REASSESS FOR ANY CHANGES THROUGHOUT THE SHIFT.
--- NOTE | 2020-06-02 22:05 | NUR ---
RN NOTES RECEIVED CALL FROM PT'S RELATIVE KULWINDER ([phone]) CHECKING FOR THE CURRENT STATUS OF PATIENT, RN ADVISED HER THAT PT IS STABLE AND V/S WNL AT THIS TIME. SHE REQUESTED FOR SPECIFICS ON TREATMENT PLAN BUT RN ADVISED HER TO CALLBACK IN THE MORNING TO TALK TO MD TO GIVE MORE DETAILS. SHE ACKNOWLEDGED. SHE ASKED FOR THE TIME OF DC OF PT , RN ADVISE HER ITS GOING TO BE [facility] 06.03.2020 BUT NO SPECIFIC TIME YET. BUT WILL PROVIDE HER A CALL FOR UPDATE PRIOR TO DC. SHE ACKNOWLEDGED. ANESTHESIOLOGIST PHYSICIAN MADE AWARE.
[2020-06-03] VITALS: BP 149/56
--- NOTE | 2020-06-03 | NUR ---
RN NOTES NO NOTED CHANGES TO PATIENT CONDITION/STATUS. SOCIAL INSURANCE ANALYST MADE AWARE. WILL CONTINUE TO MONITOR AND REASSESS FOR ANY CHANGES THROUGHOUT THE SHIFT.
[2020-06-03] MEDS: VANCOMYCIN 1.5 GM in IV D5W 500ml IV SCH (00:51)
--- NOTE | 2020-06-03 02:00 | NUR ---
RN NOTES NO NOTED CHANGES TO PATIENT CONDITION/STATUS. BEACH PATROL LIEUTENANT MADE AWARE. WILL CONTINUE TO MONITOR AND REASSESS FOR ANY CHANGES THROUGHOUT THE SHIFT.
[2020-06-03 04:00] VITALS: BP 132/72
--- NOTE | 2020-06-03 04:00 | NUR ---
RN NOTES NO NOTED CHANGES TO PATIENT CONDITION/STATUS. MECHANIC CHIEF MADE AWARE.WILL CONTINUE TO MONITOR AND REASSESS FOR ANY CHANGES THROUGHOUT THE SHIFT.
[2020-06-03] MEDS: BLOOD SUGAR DIAGNOSTIC 1 EACH STRIP IN SCH (05:45)
[2020-06-03] MEDS: INSULIN REGULAR, HUMAN 100 UNIT/ML 3 ML VIAL SQ PRN (05:55)
--- NOTE | 2020-06-03 06:00 | NUR ---
RN NOTES NO NOTED CHANGES TO PATIENT CONDITION/STATUS. FRAUD PREVENTION ANALYST MADE AWARE. WILL CONTINUE TO MONITOR AND REASSESS FOR ANY CHANGES THROUGHOUT THE SHIFT
--- NOTE | 2020-06-03 06:55 | NUR ---
RN CLOSING NOTES PATIENT REMAINS IN ROOM IN NO SIGNS OF RESPIRATORY DISTRESS. PATIENT SATURATING 96% OF 02. VITAL SIGNS WNL. IV LINE MAINTAINED, INTACT, PATENT AND FLUSHING, MNO SITE REDNESS OR INFILTRATION. SAFETY PRECAUTIONS IN PLACE AND COMFORT MEASURES RENDERED. BED IN LOWEST POSITION, CALL LIGHT WITHIN REACH, BREAKS ON, SIDE RAILS UP. ALL NEEDS ATTENDED, MEDICATIONS GIVEN SCHEDULED AND ORDERED ; SHIFT ASSESSMENT/BEDBATH/SKIN CARE DONE. PATIENT KEPT CLEAN AND DRY. WILL ENDORSE TO INCOMING SHIFT FOR JAYLON WITH ALL PERTINENT INFO REGARDING PATIENT STATUS.
[2020-06-03 08:00] VITALS: BP 130/82
--- NOTE | 2020-06-03 08:00 | NUR ---
GRADE CHECKER RECEIVED PT IN BED AOX1 STABLE PT IS MUCH ALERT TODAY FROM YESTERDAY , IV ACCESS PATENT LANDRUM PATENT BREAKFAST AT BEDSIDE SAFETY MEASURES TAKEN CALL LIGHT W/ IN REACH WILL CONT TO MONITOR.
[2020-06-03] MEDS: VORICONAZOLE 200 MG TABLET PO SCH (08:36)
[2020-06-03] MEDS: LACOSAMIDE 50 MG TABLET PO SCH (08:36)
[2020-06-03] MEDS: LEVETIRACETAM SOL (5 ML) 100 MG/ML UDC PO SCH (08:36)
[2020-06-03 08:37] VITALS: BP 130/82
[2020-06-03] MEDS: GLUCERNA SHAKE 237 ML CAN PO SCH (08:37)
[2020-06-03] MEDS: CLOTRIMAZOLE 1% 15 GM TUBE TP SCH (08:37)
[2020-06-03] MEDS: VALSARTAN 80 MG TABLET PO SCH (08:37)
[2020-06-03] MEDS: CEFEPIME 2 GM in IV D5W 100 ML IV SCH (08:38)
[2020-06-03] MEDS ORDERED: LEVETIRACETAM SOL (5 ML) 100 MG/ML UDC PO SCH (09:00)
--- NOTE | 2020-06-03 10:45 | NUR ---
SURVEILLANCE DIRECTOR PT FAMILY MERE REFUSED FOR DC PHOTOS TO BE TAKEN
--- NOTE | 2020-06-03 10:54 | NUR ---
sericulturist ems and pt YORDY SEVERINO AT BEDSIDE, REPORT GIVEN AT [facility] SPOKE WITH NIKA EMMANUEL FOR CONT OF CARE, PT IS IN GOOD SPIRIT ALL PT NEEDS MEET DC INSTRUCTIOSN GIVEN AND TOUGHT, BELONGINGS GIVEN AND PAPER SIGNED LEFT UNIT AT 10:57AM STABLE CONDITION VS 163/69 HR 92 O2 SAT 98% RR 20 T 98.4
[2020-06-07 07:07] LABS: RENIN, PLASMA 1.945 ng/mL/hr (0.167-5.380)
== END 2020-06-03 11:00 | DRG 101 ==
LOC: ER 14:37 → TELE 18:07 → MED 05-23 11:17 → TELE 05-26 20:59 → ICU 05-26 22:42 → TELE1 05-31 09:26
PROVIDERS: ADMIT Student in an Organized Health Care Education/Training Program; ATTEND Student in an Organized Health Care Education/Training Program
PROC: 05HY33Z Insertion of Infusion Device into Upper Vein, Percutaneous Approach (ICD-10-PCS; principal; 2020-05-23)
PROC: 05HY33Z Insertion of Infusion Device into Upper Vein, Percutaneous Approach (ICD-10-PCS; 2020-05-31)
DX: G40.401 Other generalized epilepsy and epileptic syndromes, not intractable, with status epilepticus (principal); E44.1 Mild protein-calorie malnutrition; E87.6 Hypokalemia; E11.9 Type 2 diabetes mellitus without complications; I10 Essential (primary) hypertension; Z79.4 Long term (current) use of insulin; Z68.39 Body mass index [BMI] 39.0-39.9, adult; Z79.891 Long term (current) use of opiate analgesic; Z79.899 Other long term (current) drug therapy; Z88.0 Allergy status to penicillin; G89.4 Chronic pain syndrome; E78.5 Hyperlipidemia, unspecified; E78.00 Pure hypercholesterolemia, unspecified; M48.061 Spinal stenosis, lumbar region without neurogenic claudication; M96.1 Postlaminectomy syndrome, not elsewhere classified; M47.816 Spondylosis without myelopathy or radiculopathy, lumbar region; F17.200 Nicotine dependence, unspecified, uncomplicated; E66.01 Morbid (severe) obesity due to excess calories
CPT/HCPCS: 36410; 36415; 70450-TC; 70551-TC; 70553-TC; 71045-TC; 72132-TC; 76882; 80048-TC; 80053-TC; 80061-TC; 80076-TC; 80185-TC; 80202-TC; 80305; 82088; 82436-TC; 82962-TC; 83735-TC; 83935-TC; 84100-TC; 84133-TC; 84244; 84300-TC; 84443-TC; 85025-TC; 85730-TC; 87040-TC; 87081-TC; 87086-TC; 92526; 92611-TC; 94760-TC; 94799-TC; 95819-TC; 97116-TC; 97530-TC; A6253; A6403; A9575; C9803-CS; G0378; J0692; J1165; J1815; J1953; J2060; J3370; J3475; J3480; J3490; J7030; J7040; J7050; J7060; Q9967